=== PATIENT | male | born 1940 | race African-American/Black ===

== ENCOUNTER 2020-02-07 10:08 | Outpatient (REF) | payer MEDICARE, SELFPAY ==
--- NOTE | 2020-02-07 10:21 | MR_ITS ---
EXAMINATION: MR LUMBAR SPINE WITHOUT CONTRAST CLINICAL INFORMATION: Low back pain. COMPARISON: Plain films of the lumbar spine 03/10/2017. TECHNIQUE: MRI of the lumbar spine was obtained using routine sequences without contrast. FINDINGS: VERTEBRAL BODIES AND PARASPINAL STRUCTURES: There is a mild levoscoliosis. There are mild retrolistheses of L1 on L2 and L5 on S1. There is marked narrowing of intervertebral disc height at L1-L2 with degenerative endplate contour changes and edematous signal. Degenerative endplate contour changes with fatty signal demonstrated at L5-S1. There are multilevel Schmorl's nodes. No fractures are demonstrated. Overall, marrow signal is slightly heterogenous. There is a large cyst off the anterior aspect of the left kidney which is incompletely visualized, and was present on prior imaging. There are also smaller cysts in the kidneys bilaterally. The visualized pelvic structures are unremarkable. CONUS MEDULLARIS AND CAUDA EQUINA: Normal, terminating at the level of L1. The lower thoracic spinal cord appears normal. The cauda equina nerve roots and filum terminale appear normal. SPINAL LEVELS: L1-L2: There is mild bilateral facet arthropathy. There is a posterior disc osteophyte complex which is most prominent centrally and toward the left extending into the left neural foramen and there may be impingement on the exiting left L1 nerve root. There is also narrowing of the left subarticular recess with likely impingement on the traversing left L2 nerve root. There is no central stenosis. L2-L3: There is mild bilateral facet arthropathy with facet joint effusions. There is a diffuse disc bulge. The neural foramina are patent. There is mild narrowing of the bilateral subarticular recesses. There is mild central stenosis. L3-L4: There is moderate bilateral facet arthropathy. There is a small cyst off the posterior aspect of the right facet joint. There is a broad-based posterior disc protrusion which is more prominent on the right extending into the right neural foramen. There is mild mass effect on the traversing right L4 nerve root. There is mild central stenosis. L4-L5: There is moderate bilateral facet arthropathy. There is a broad-based posterior disc protrusion extending into the neural foramina bilaterally without definite exiting nerve root impingement. There is mild narrowing of the bilateral subarticular recesses. There is no central stenosis. L5-S1: There is mild to moderate bilateral facet arthropathy. There appear to be sequelae of a left hemilaminectomy. There is a broad-based posterior disc protrusion extending into the neural foramina bilaterally with impingement on the exiting L5 nerve roots. There is impingement on the traversing left S1 nerve root. There is no central stenosis. IMPRESSION: 1. At L5-S1 there is facet arthropathy and is a posterior disc protrusion extending into the neural foramina bilaterally with impingement on the exiting L5 nerve roots, as well as on the traversing left S1 nerve root. There appear to be sequelae of a left hemilaminectomy. 2. At L1-L2 there is a posterior disc osteophyte complex extending into the left neural foramen with impingement on the exiting left L1 nerve root. There is narrowing of the left subarticular recess with likely impingement on the traversing left L2 nerve root. There is no central stenosis. 3. At L3-L4 there is facet arthropathy and there is a posterior disc protrusion. There is narrowing of the right subarticular recess and there is impingement on the traversing right L4 nerve root. There is mild central stenosis.
== END 2020-02-07 10:09 | disposition home or self-care (01) ==
LOC: HO.MRI 10:08
PROVIDERS: PCP Internal Medicine; Visit Provider Internal Medicine
DX: M54.5 Low back pain (principal)
CPT/HCPCS: 72148

== ENCOUNTER → 2020-06-15 14:34 | Outpatient (BNVA) | payer MEDICARE, SELFPAY | PROVIDERS: PCP Internal Medicine; Visit Provider Urology | DX: N52.01 Erectile dysfunction due to arterial insufficiency (principal); N40.0 Benign prostatic hyperplasia without lower urinary tract symptoms | CPT/HCPCS: 99212 ==

== ENCOUNTER → 2020-12-08 14:46 | Outpatient (BNVA) | payer MEDICARE, SELFPAY | PROVIDERS: PCP Internal Medicine; Visit Provider Urology | CPT/HCPCS: Q3014 ==

== ENCOUNTER 2022-12-12 10:22 | Outpatient (REF) | payer MEDICARE, SELFPAY ==
--- NOTE | ~2022-12-12 | XR_ITS ---
EXAMINATION: XR HAND, RIGHT CLINICAL INFORMATION: Pain. COMPARISON: None available. TECHNIQUE: PA, lateral, and oblique views of the right hand. FINDINGS: Bony alignment and mineralization are normal. There is mild osteoarthritic change of the first metacarpophalangeal joint. No fracture or dislocation is seen. There is no abnormal bone erosion. The proximal and distal carpal rows are intact. No focal soft tissue swelling, gas or foreign body is seen. XR/XR hand RT min 3V IMPRESSION: 1. No fracture or dislocation is seen. 2. There is mild osteoarthritic change of the right first metacarpophalangeal joint. 3. No abnormal bone erosion is noted.
--- NOTE | ~2022-12-12 | XR_ITS ---
EXAMINATION: XR LUMBOSACRAL SPINE WITH OBLIQUES CLINICAL INFORMATION: Pain status-post injury. COMPARISON: None available. TECHNIQUE: AP, both oblique, and lateral views of the lumbar spine. Lateral view of the lumbosacral junction. FINDINGS: Vertebral body heights are normal. There is a mild thoracolumbar dextroscoliosis. At T12-L1 and L1-L2, there is marked disc space narrowing, with vacuum disc phenomenon. At L2-L3, there is a 3 mm retrolisthesis. At L5-S1, there is marked disc space narrowing, with vacuum disc phenomenon. No acute fracture or spondylolisthesis is seen. This multi-level lumbar spondylosis. There is facet arthropathy at L4-L5 and L5-S1. There are aortoiliac atherosclerotic calcifications. There are pelvic phleboliths. XR/XR lumbar spine 4V min IMPRESSION: There is multi-level lower thoracic and lumbar degenerative disc disease, spondylosis and facet arthropathy. Degenerative disc disease most pronounced at T12-L1, L1-L2 and L5-S1, where it is severe.
== END 2022-12-12 10:23 | disposition home or self-care (01) ==
LOC: HO.HHCX 10:22
PROVIDERS: Visit Provider Internal Medicine
DX: M79.644 Pain in right finger(s) (principal); M54.50 Low back pain, unspecified
CPT/HCPCS: 72110; 73130

== ENCOUNTER 2022-12-17 08:34 | Outpatient (REF) | payer MEDICARE, SELFPAY ==
--- NOTE | ~2022-12-17 | XR_ITS ---
EXAMINATION: XR BILATERAL HIPS WITH AP PELVIS CLINICAL INFORMATION: Midline low back pain with sciatica COMPARISON: Chest radiograph from 03/07/2017 TECHNIQUE: 2 views of the pelvis and single views of each hip FINDINGS: No acute visible fracture or dislocation. Degenerative changes of the bilateral femoral acetabular joints. Degenerative arthropathy of the lower lumbar spine. Joint spaces and alignment are otherwise maintained. Soft tissues are unremarkable. XR/XR hips NICCI min 3V IMPRESSION: 1. No acute visible fracture or dislocation. 2. Degenerative changes of the bilateral femoral acetabular joints. 3. Degenerative arthropathy of the lower lumbar spine.
== END 2022-12-17 08:35 | disposition home or self-care (01) ==
LOC: HO.HHCX 08:34
PROVIDERS: Visit Provider Internal Medicine
DX: M54.50 Low back pain, unspecified (principal); G89.29 Other chronic pain
CPT/HCPCS: 73522

== ENCOUNTER 2022-12-17 09:03 | Outpatient (REF) | payer MEDICARE, SELFPAY ==
[2022-12-17 12:05] LABS: Alanine Aminotransferase 21 U/L (0-40); Albumin Level 4.2 g/dL (3.5-5.0); Alkaline Phosphatase 111 U/L (39-117); Anion Gap 8 (12-20); Aspartate Amino Transferase 22 U/L (5-37); Bilirubin Direct 0.2 mg/dL (0.0-0.5); Bilirubin Total 0.6 mg/dL (0.0-1.0); Blood Urea Nitrogen 13 mg/dL (9-16); Calcium 9.1 mg/dL (8.4-10.2); Carbon Dioxide 29 mmol/L (22-29); Chloride 106 mmol/L (96-108); Estimated Glomerular Filt Rate > 60; Glucose Random 103 mg/dL (60-115); Potassium 4.4 mmol/L (3.3-5.1); Sodium 139 mmol/L (135-145); Total Protein 7.1 g/dL (6.5-8.0)
[2022-12-17 12:15] LABS: Cholesterol 198 mg/dL (<200); HDL Cholesterol 33 mg/dL (>40); LDL Cholesterol Calculated 134 mg/dL (<100); Triglycerides 158 mg/dL (<150)
[2022-12-17 13:22] LABS: Reflex LDLD? No
== END 2022-12-17 09:04 | disposition home or self-care (01) ==
LOC: HO.HHCL 09:03
PROVIDERS: Visit Provider Internal Medicine
DX: Z00.00 Encounter for general adult medical examination without abnormal findings (principal); I10 Essential (primary) hypertension; E78.2 Mixed hyperlipidemia; Z12.5 Encounter for screening for malignant neoplasm of prostate
CPT/HCPCS: 36415; 80048; 80061; 80076; 84153

== ENCOUNTER 2023-01-08 10:30 | Outpatient (AMB) | payer MEDICARE, SELFPAY ==
--- NOTE | 2023-01-08 10:34 | A.OFFVIS_ITS ---
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 Patient reports reports noticing a lump on the base of the thumb about 4 weeks ago. He states when it causes him a lot of pain and the pain radiates to the dorsal aspect of the wrist. Allergies No Known Allergies [No Known Allergies*] Allergy (Unknown, Verified 01/08/23 10:38) NONE Medication List - Last Reconciled 01/08/23 by Veronica Quick MD amitriptyline 50 mg PO BEDTIME aspirin 81 mg PO BEDTIME atorvastatin mg PO fluoxetine mg PO fluticasone propionate 50 mcg/actuation 1 spray intranasal DAILY furosemide 20 mg PO DAILY ipratropium-albuterol 0.5 mg-3 mg(2.5 mg base)/3 mL mL inhalation lisinopril 5 mg PO BEDTIME loratadine 10 mg PO BEDTIME memantine 5 mg PO BEDTIME metoprolol succinate ER 100 mg PO DAILY ltvlbcuduzxj-drls-iyauz acid 18-400 mg-mcg (Certavite-Antioxidant) 0 tabs PO nitroglycerin 0.4 mg sublingual omeprazole 20 mg PO QAM sildenafil 100 mg PO DAILY PRN sildenafil 100 mg PO DAILY PRN 30 days tizanidine 2 mg PO Q12H PRN tramadol 50 mg PO BID PRN umeclidinium 62.5 mcg/actuation 1 inh inhalation DAILY HPI HPI Comments History of Present Illness Details History of Alzheimers. Here with daughter who provided most of his history. 4 months of right thumb, no falls or acc idents. Points to right base of thumb ventral aspect. Locks. Complains of numbness on thumb, but also on other fingers. Right handed. 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 Treatment done so far: NSAIDs - none no splints or brace yet therapy - none yet PFSH Medical History (Updated 01/08/23 @ 10:57 by Veronica Quick MD) Carpal tunnel syndrome of right wrist Trigger finger of right thumb Osteoarthritis of metacarpophalangeal (MCP) joint Dyspepsia GERD (gastroesophageal reflux disease) Weight loss Renal cyst, acquired Impaired fasting glucose Anxiety Hyperlipidemia Coronary artery disease HTN (hypertension) Lateral epicondylitis Surgical History (Updated 12/08/20 @ 14:49 by NEELAM Lao) History of surgery Social History (Updated 01/08/23 @ 10:37 by Jarvis Portillo) Alcohol intake: current Patient Tobacco Use Status: Current everyday Tobacco user Current occupational status: retired Review of Systems Const All systems reviewed & are unremarkable except as noted in HPI and below Physical Exam Vital Signs: BMI result Body Mass Index 25.6 Constitutional: Patient appears to be in no acute distress, well nourished and well developed. MSK: Inspection reveals appropriate head and neck positioning. No pain with palpation over the neck musculature. Cervical ROM was full. Spurling's sign negative. Bilateral shoulder ROM WNL. No ligamentous laxity or crepitance. No increased effusion. Hawkin's test is negative. Trigger thumb with palpable nodule, right. Tender on right 1st MCP joint, less tenderness on other MCP joints. No intrinsic hand weakness noted. No atrophy noted. Mady test negative. Carpal compression test negative. Tinel sign negative. Strength is 5/5 in all muscle groups tested. No increased tone noted. Neurological: Neurologic examination of the upper and lower extremities was nonfocal with intact sensation, muscle stretch reflexes and without focal motor deficits . Stephens?s negative bilaterally. Gait is non-antalgic without loss of balance. Results Reviewed Results Reviewed: I independently reviewed the results of the following: Right hand x-ray shows loss of space right 1st MCP joint. EXAMINATION: XR HAND, RIGHT CLINICAL INFORMATION: Pain. COMPARISON: None available. TECHNIQUE: PA, lateral, and oblique views of the right hand. FINDINGS: Bony alignment and mineralization are normal. There is mild osteoarthritic change of the first metacarpophalangeal joint. No fracture or dislocation is seen. There is no abnormal bone erosion. The proximal and distal carpal rows are intact. No focal soft tissue swelling, gas or foreign body is seen. XR/XR hand RT min 3V IMPRESSION: 1. No fracture or dislocation is seen. 2. There is mild osteoarthritic change of the right first metacarpophalangeal joint. 3. No abnormal bone erosion is noted. I reviewed records from the following: PCP Assessment & Plan Assessment & Plan (1) Osteoarthritis of metacarpophalangeal (MCP) joint: Code(s): M19.049 - Primary osteoarthritis, unspecified hand (2) Trigger finger of right thumb: Code(s): M65.311 - Trigger thumb, right thumb (3) Carpal tunnel syndrome of right wrist: Code(s): G56.01 - Carpal tunnel syndrome, right upper limb Plan X-ray shows right MCP joint arthritis. Exam shows right trigger thumb and possible Carpal Tunnel Syndrome. We decided to treat this conservatively, nonsurgical. We will put him on a thumb spica splint. Referring him to hand therapy. If not better in few weeks/months, we could consider steroid injection. We will try to avoid need for surgery if possible. Assessment and plan discussed with patient, and patient was agreeable. All questions were answered thoroughly. Follow-up 2 months. Veronica Quick MD, BETTINA Board Certified, [place] [employer] and Rehabilitation (ABPMR) Board Certified, [place] Board [employer] Electro[employer]ostic [employer] (ABEM) Orders: Orders OT Evaluation and Treatment Today G56.01 - Carpal tunnel syndrome, right upper limb, M19.049 - Primary osteoarthritis, unspecified hand, M65.311 - Trigger thumb, right thumb Coding Level of Care Code New Pt Level 4 (89828) Diagnoses Osteoarthritis of metacarpophalangeal (MCP) joint M19.049 Trigger finger of right thumb M65.311 Carpal tunnel syndrome of right wrist G56.01
[2023-01-08 10:37] VITALS: BMI 25.6
== END 2023-01-08 11:45 | disposition home or self-care (01) ==
PROVIDERS: PCP Internal Medicine; Visit Provider Physical Medicine & Rehabilitation
DX: M19.041 Primary osteoarthritis, right hand (principal); M65.311 Trigger thumb, right thumb; G56.01 Carpal tunnel syndrome, right upper limb
CPT/HCPCS: 99204

== ENCOUNTER → 2023-01-08 10:30 | Outpatient (BNVA) | payer MEDICARE, SELFPAY | PROVIDERS: PCP Internal Medicine; Visit Provider Physical Medicine & Rehabilitation ==

== ENCOUNTER 2023-01-23 08:00 | Outpatient (RCR) | payer MEDICARE, SELFPAY | END 2023-01-23 08:54 | disposition home or self-care (01) | LOC: HO.PT 08:00 | PROVIDERS: PCP Internal Medicine; Visit Provider Internal Medicine | DX: M54.50 Low back pain, unspecified (principal); G89.29 Other chronic pain | CPT/HCPCS: 97110; 97162; 97530 ==

== ENCOUNTER 2023-02-20 08:44 | Outpatient (AMB) | payer MEDICARE, SELFPAY ==
--- NOTE | 2023-02-20 08:56 | MHC.OFFVIS ---
Intake Intake Visit Reasons: Elevated PSA Intake Note: NEW Patient presents today to established treatment for Elevated PSA: Meds- Sildenafil Allergies to Antibiotic- No Known Allergies Blood Thinner- Aspirin & Furosemide PSA Results- 4.20 ng/mL, 12/17/2022 Unable to void, PVR- 134 mL Field Service Technician Poultry Required: Yes Field Service Technician Poultry Language: Epidemiologist Name: Sal Medeiros, NEELAM/ERLINDA Rivers Information Interpreted: non-clinical & clinical Accompanied by: Self / Same As Patient Allergies No Known Allergies [No Known Allergies*] Allergy (Unknown, Verified 02/20/23 08:56) NONE HPI HPI Comments History of Present Illness Details Domenic is an 82-year-old male who presents today to the office for a evaluation. 02/20/2023? He is present today for an evaluation of elevated PSA. The patient has seen Dr. Vides on 12/20/2022. He was referred to the urology office during that time. He is a [place] speaking male. 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 The patient has a past medical history significant for coronary artery disease and hypertension. He is a status post cardiac stent. He denies any family history of cancer. He is currently sexual active but does not use Viagra due to the cardiac condition. Patient states that he urinates frequently during the day time and denies getting up at night time to urinate. In review of his medications, he does take Lasix 20 mg during the day which may contribute to the day time urinary frequency. I reviewed the PSA results from 12/17/2022 revealed 4.20 ng/mL. In discussion with the patient given his age his PSA was wnl. Examination: Prostate is smooth, moderately enlarged. 02/20/2023: Evaluation today?Bladder scan PVR: 134 mL. 02/20/2023: Plan: Continue to monitor voiding function and PVR. No further PSA screening recommended given his age and normal prostate exam at this time. [facility] Medical History Carpal tunnel syndrome of right wrist Trigger finger of right thumb Osteoarthritis of metacarpophalangeal (MCP) joint Dyspepsia GERD (gastroesophageal reflux disease) Weight loss Renal cyst, acquired Impaired fasting glucose Anxiety Hyperlipidemia Coronary artery disease HTN (hypertension) Lateral epicondylitis Surgical History History of surgery Social History Alcohol intake: current Patient Tobacco Use Status: Current everyday Tobacco user Current occupational status: retired Review of Systems Const All systems reviewed & are unremarkable except as noted in HPI and below Reports no additional complaints Eyes Reports no additional complaints ENT Reports no additional complaints Card Denies dyspnea Resp Denies cough and Denies dyspnea GI Reports no additional complaints Musc Reports no additional complaints Skin/Breast Denies rash and Denies unusual bruising Neuro Reports no additional complaints Psych Reports no additional complaints Endo Reports no additional complaints Shady/Lymph Reports no additional complaints Aller/Immun Reports no additional complaints Physical Exam Const General: healthy appearing, no acute distress and well developed Orientation/consciousness: patient oriented x3 HEENT Head: Yes normocephalic and Yes atraumatic Eyes Conjunctivae: conjunctivae normal Neck Neck: Yes normal visual inspection Chest Chest palpation & inspection: normal inspection of the chest Resp Effort & Inspection: normal respiratory effort Cardio Rate: regular rate GI Inspection: Yes normal to inspection Palpation (GI): Soft to palpation Other: Prostate Exam: moderately enlarged smooth Penis: normal penis Scrotum: scrotum normal Skin General skin exam: no rashes or lesions noted Neuro General: patient oriented x3 Psych Appearance: grossly normal Affect: normal affect Office Procedures Post Void Residual Post Residual Void Post Void Residual (PVR): 134 [id number] Void Residual by ultrasound Results AMB Urinalysis, Automated UA Leukoctes 0 Tyrell/uL Last Edit by NEELAM Hogan on 02/20/23 14:43 UA Nitrite Negative Last Edit by NEELAM Hogan on 02/20/23 14:43 UA Urobilinogen 0.2 mg/dL Last Edit by NEELAM Hogan on 02/20/23 14:43 UA Protein 0 mg/dL Last Edit by NEELAM Hogan on 02/20/23 14:43 UA pH 7.0 Last Edit by NEELAM Hogan on 02/20/23 14:43 UA Blood 10 Lucas/uL Last Edit by NEELAM Hogan on 02/20/23 14:43 UA Specific [place] 1.010 Last Edit by Sal Waldemar, ZACFatuma on 02/20/23 14:43 UA Ketone Negative Last Edit by NEELAM Hogan on 02/20/23 14:43 UA Bilirubin 0 mg/dL Last Edit by Sukhiparish Waldemar, ZACA on 02/20/23 14:43 UA Glucose 0 mg/dL Last Edit by NEELAM Hogan on 02/20/23 14:43 Results Reviewed Results Reviewed: Laboratory Last Values Urine pH (Auto) 7.0 02/20/23 14:40 Specific [place] (Auto) 1.010 02/20/23 14:40 Urine Protein (Auto) 0 mg/dL 02/20/23 14:40 Glucose (UA)(Auto) 0 mg/dL 02/20/23 14:40 Urine Ketones (Auto) Negative 02/20/23 14:40 Urine Blood (Auto) 10 Lucas/uL 02/20/23 14:40 Urine Nitrite (Auto) Negative 02/20/23 14:40 Urine Bilirubin (Auto) 0 mg/dL 02/20/23 14:40 Urine Urobilinogen (Auto) 0.2 mg/dL 02/20/23 14:40 Leukocyte Esterase (Auto) 0 Tyrell/uL 02/20/23 14:40 Assessment & Plan Assessment & Plan (1) BPH (benign prostatic hyperplasia): Code(s): N40.0 - Benign prostatic hyperplasia without lower urinary tract symptoms (2) Erectile dysfunction due to arterial insufficiency: Code(s): N52.01 - Erectile dysfunction due to arterial insufficiency Plan Continue voiding function and PVR. No further PSA screening and prostate exam recommended given his age at this time. Orders: Orders AMB Post Void Residual by ultrasound Today N39.8 - Other specified disorders of urinary system AMB Urinalysis Automated Today Z13.9 - Encounter for screening, unspecified Patient Instructions: The patient had an opportunity to ask questions regarding treatment plan. All questions were answered. Imaging, Laboratory studies and physical exam results were discussed and reviewed in detail. No major barriers to understanding were identified. The patient expressed understanding and agreement with the above treatment plan. The patient is aware they should contact our office by phone for worsening of their current condition or the appearance of new symptoms. Compliance is encouraged with any medications and followup testing that is ordered. It is a privilege to be allowed the opportunity to participate in the urologic care of your patient. If you have any questions or concerns regarding treatment for the above conditions please do not hesitate to contact me. The office telephone contact is [phone]. This note is constructed in part using voice recognition software. While every effort has been made to ensure accuracy hand umbrella tipper errors may have been included. Yours sincerely, Elke Cabrera MD Coding Level of Care Code New Pt Level 4 (49227) Diagnoses BPH (benign prostatic hyperplasia) N40.0 Erectile dysfunction due to arterial insufficiency N52.01 CPT Codes Post Residual Void - PVR CPT Code: 37970-Yiyw Void Residual by ultrasound ([id number])
== END 2023-02-20 10:02 | disposition home or self-care (01) ==
PROVIDERS: PCP Internal Medicine; Visit Provider Urology
DX: N40.0 Benign prostatic hyperplasia without lower urinary tract symptoms (principal); N52.01 Erectile dysfunction due to arterial insufficiency; Z13.9 Encounter for screening, unspecified
CPT/HCPCS: 99204

== ENCOUNTER → 2023-02-20 08:44 | Outpatient (BNVA) | payer MEDICARE, SELFPAY | PROVIDERS: PCP Internal Medicine; Visit Provider Urology | DX: N40.0 Benign prostatic hyperplasia without lower urinary tract symptoms (principal); N52.01 Erectile dysfunction due to arterial insufficiency | CPT/HCPCS: 51798; 81003; 99202 ==

== ENCOUNTER 2023-03-25 09:22 | Outpatient (REF) | payer MEDICARE, SELFPAY ==
--- NOTE | ~2023-03-25 | XR_ITS ---
EXAMINATION: XR RIGHT HAND AND X-RAY RIGHT WRIST CLINICAL INFORMATION: Fall down with wrist and hand pain COMPARISON: None available. TECHNIQUE: Frontal, lateral and oblique radiographs of the right hand were acquired. Frontal, lateral, navicular and oblique radiographs of the right wrist were acquired. FINDINGS: Right hand: 3 views of the right hand show no fracture, dislocation or bone lesion. Right wrist: There is a small osseous fragment adjacent to the ulnar styloid. This may reflect either a small ulnar styloid fracture or, alternatively, calcification of the triangular fibrocartilage complex. The distal radius and carpal bones are intact. XR/XR wrist RT min 3V IMPRESSION: 1. No acute fracture of the right hand. 2. Tiny chip fracture of the ulnar styloid process versus calcification of the triangular fibrocartilage complex. Suggest correlation with site of pain.
--- NOTE | ~2023-03-25 | XR_ITS ---
EXAMINATION: XR RIGHT HAND AND X-RAY RIGHT WRIST CLINICAL INFORMATION: Fall down with wrist and hand pain COMPARISON: None available. TECHNIQUE: Frontal, lateral and oblique radiographs of the right hand were acquired. Frontal, lateral, navicular and oblique radiographs of the right wrist were acquired. FINDINGS: Right hand: 3 views of the right hand show no fracture, dislocation or bone lesion. Right wrist: There is a small osseous fragment adjacent to the ulnar styloid. This may reflect either a small ulnar styloid fracture or, alternatively, calcification of the triangular fibrocartilage complex. The distal radius and carpal bones are intact. XR/XR hand RT min 3V IMPRESSION: 1. No acute fracture of the right hand. 2. Tiny chip fracture of the ulnar styloid process versus calcification of the triangular fibrocartilage complex. Suggest correlation with site of pain.
== END 2023-03-25 09:23 | disposition home or self-care (01) ==
LOC: HO.HHCX 09:22
PROVIDERS: Visit Provider Nurse Practitioner Family
DX: M79.641 Pain in right hand (principal); M25.531 Pain in right wrist
CPT/HCPCS: 73110; 73130

== ENCOUNTER 2023-05-01 09:37 | Outpatient (AMB) | payer MEDICARE, SELFPAY ==
[2023-05-01 09:56] VITALS: BMI 25.6
--- NOTE | 2023-05-01 09:56 | A.OFFVIS_ITS ---
Intake Vital Signs 05/01/23 09:56 Height 5 ft 2 in Weight 140 lb BMI 25.6 Intake Visit Reasons: FC - rt small ulnar styloid fx, DOI 03/25/23 Intake Note: Domenic is a 82 year old right hand dominant male who presents today for a evaluation of his right wrist fx, DOI 03/25/23. Patient reports he fell landing on his right hand. 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 The patient was referred to the office status post a mechanical fall that occurred around the beginning of 03/23/2023. He states he went to the doctor twice since he fell. The patient reported tripping on tile at his home causing him to fall. He states the wrist is causing him pain. [facility] Medical History Carpal tunnel syndrome of right wrist Trigger finger of right thumb Osteoarthritis of metacarpophalangeal (MCP) joint Dyspepsia GERD (gastroesophageal reflux disease) Weight loss Renal cyst, acquired Impaired fasting glucose Anxiety Hyperlipidemia Coronary artery disease HTN (hypertension) Lateral epicondylitis Surgical History History of surgery Social History Alcohol intake: current Patient Tobacco Use Status: Current everyday Tobacco user Current occupational status: retired Review of Systems Const All systems reviewed & are unremarkable except as noted in HPI and below Physical Exam Vital Signs: BMI result Body Mass Index 25.6 Const General: cooperative and no acute distress Orientation/consciousness: patient oriented x3 Resp Effort & Inspection: normal respiratory effort and able to speak in complete sentences Cardio Peripheral pulses: Peripheral pulses 2+ throughout Skin General skin exam: no rashes or lesions noted Neuro General: patient oriented x3 Extrem Other: Right wrist: Normal to inspection. No ecchymosis, erythema, or edema. Mild tenderness to palpation over the ulnar styloid. Able to perform full finger flexion, extension, abduction, adduction, finger cross, okay sign, and thumbs up without deficit. Able to make a closed fist. Sensation intact. Capillary refill is brisk. Radial pulse intact. Assessment & Plan Assessment & Plan (1) Fracture of right ulnar styloid: Comment: Tiny chip fracture of the ulnar styloid Code(s): S52.611A - Displaced fracture of right ulna styloid process, initial encounter for closed fracture Qualifiers: Encounter type: initial encounter Fracture alignment: nondisplaced Fracture type: closed Qualified Code(s): S52.614A - Nondisplaced fracture of right ulna styloid process, initial encounter for closed fracture Plan Mr. Bains is an 82-year-old right hand dominant male, who is Moroccan speaking (special officer automat was used on the Ipad), presents in the office today, as a new patient, for an evaluation of right hand pain. The patient was referred to the office status post a mechanical fall that occurred around the beginning of 03/23/2023. He states he went to the doctor twice since he fell. The patient reported tripping on tile at his home causing him to fall. He states the wrist is causing him pain. We discussed the bone chip will take 6-8 weeks to heal. I would not recommend a brace at this time due to the amount of time that has pasted since the initial injury and because I would like for you to start to work on gentle ROM to help with stiffness. No heavy lifting with the right upper extremity greater than a coffee cup or cell phone for 4 weeks. Follow up will be in 4 weeks with repeat x-rays, or sooner if needed. X-rays of the right hand, obtained on 03/25/2023, revealed: 1. No acute fracture or dislocation of the right hand. 2. Tiny chip fracture of the ulnar styloid process versus calcification of the triangular fibrocartilage complex. Suggest correlation with site of pain. Patient Instructions: Scribed for Violette Conway PA-C by Nellie Parra medical insurance claims specialist, on 05/01/2023 at 10:00 am, EST. Coding Level of Care Code New Pt Level 4 (01190) Diagnoses Closed nondisplaced fracture of styloid process of right ulna, initial encounter S52.614A Encounter type: initial encounter Fracture alignment: nondisplaced Fracture type: closed
== END 2023-05-01 10:14 | disposition home or self-care (01) ==
PROVIDERS: PCP Internal Medicine; Visit Provider Physician Assistant
DX: S52.614A Nondisplaced fracture of right ulna styloid process, initial encounter for closed fracture (principal)
CPT/HCPCS: 99213

== ENCOUNTER → 2023-05-01 09:37 | Outpatient (BNVA) | payer MEDICARE, SELFPAY | PROVIDERS: PCP Internal Medicine; Visit Provider Physician Assistant | DX: S52.614A Nondisplaced fracture of right ulna styloid process, initial encounter for closed fracture (principal) | CPT/HCPCS: 99212 ==

== ENCOUNTER 2023-05-30 12:39 | Outpatient (REF) | payer OTHER, SELFPAY | END 2023-05-30 12:40 | disposition home or self-care (01) | LOC: HO.HOSX 12:39 | PROVIDERS: Visit Provider Physician Assistant | DX: Z13.89 Encounter for screening for other disorder (principal) ==

== ENCOUNTER 2023-07-18 09:51 | Outpatient (REF) | payer OTHER, SELFPAY ==
--- NOTE | ~2023-07-18 | XR_ITS ---
EXAMINATION: XR WRIST, RIGHT CLINICAL INFORMATION: Pain. COMPARISON: None available. TECHNIQUE: PA, lateral, and oblique views of the right wrist. FINDINGS: Bony alignment and mineralization are normal. There is a slight ulnar positive variance. No fracture or dislocation is seen. The proximal and distal carpal rows are intact. No bone erosion is seen. There is no focal soft tissue swelling, gas or foreign body. XR/XR wrist RT min 3V IMPRESSION: Normal right wrist.
== END 2023-07-18 09:52 | disposition home or self-care (01) ==
LOC: HO.HOSX 09:51
PROVIDERS: Visit Provider Physician Assistant
DX: M25.531 Pain in right wrist (principal); S52.614D Nondisplaced fracture of right ulna styloid process, subsequent encounter for closed fracture with routine healing; W18.30XD Fall on same level, unspecified, subsequent encounter
CPT/HCPCS: 73110; 99212

== ENCOUNTER 2023-07-18 10:51 | Outpatient (AMB) | payer OTHER, SELFPAY ==
[2023-07-18 10:55] VITALS: BMI 25.6
--- NOTE | 2023-07-18 10:55 | MHC.OFFVIS ---
Intake Vital Signs 07/18/23 10:55 Height 5 ft 2 in Weight 140 lb BMI 25.6 Intake Visit Reasons: OV- rt small ulnar styloid fx, DOI 03/25/23 Intake Note: Domenic is a 82 year old right hand dominant male who presents today for a follow up of his right ulnar styloid fx, DOI 03/25/23. Patient reports he is feeling a bit better, however have some discomfort with certain movements. He states that his pain radiates up to his elbow. Allergies No Known Allergies [No Known Allergies*] Allergy (Unknown, Verified 07/18/23 10:55) NONE HPI OV- rt small ulnar styloid fx, DOI 03/25/23 HPI Details 82-year-old right hand dominant male, who is Slovenian speaking, presents in the office today for a follow up of a right ulnar styloid fracture, which occurred around the beginning of 03/2023 status post a mechanical fall. I last saw the patient in the office on 05/01/2023. At that time it was not recommend to brace the wrist due to the date the injury occurred. It was recommended for the patient to work on gentle ROM with no heavy lifting with the right upper extremity. While in the office today he reports he feeling a bit better, but he does have some discomfort with certain movements. He reports his pain radiates up to his elbow. [facility] Medical History Carpal tunnel syndrome of right wrist Trigger finger of right thumb Osteoarthritis of metacarpophalangeal (MCP) joint Dyspepsia GERD (gastroesophageal reflux disease) Weight loss Renal cyst, acquired Impaired fasting glucose Anxiety Hyperlipidemia Coronary artery disease HTN (hypertension) Lateral epicondylitis Surgical History History of surgery Social History Alcohol intake: current Patient Tobacco Use Status: Current everyday Tobacco user Current occupational status: retired Review of Systems Const All systems reviewed & are unremarkable except as noted in HPI and below Physical Exam Vital Signs: BMI result Body Mass Index 25.6 Const General: cooperative, healthy appearing and no acute distress Orientation/consciousness: patient oriented x3 Resp Effort & Inspection: normal respiratory effort and able to speak in complete sentences Cardio Rate: regular rate Peripheral pulses: Peripheral pulses 2+ throughout GI Palpation (GI): Soft to palpation Skin General skin exam: no rashes or lesions noted Lesions: no lesions Rashes: no rashes Neuro General: patient oriented x3 Extrem Other: Right wrist: Normal to inspection. No ecchymosis, erythema, or edema. No tenderness to palpation over the ulnar styloid. Able to perform full finger flexion, extension, abduction, adduction, finger cross, okay sign, and thumbs up without deficit. Able to make a closed fist. Sensation intact. Capillary refill is brisk. Radial pulse intact. Assessment & Plan Assessment & Plan (1) Fracture of right ulnar styloid: Comment: Tiny chip fracture of the ulnar styloid Code(s): S52.611A - Displaced fracture of right ulna styloid process, initial encounter for closed fracture Qualifiers: Encounter type: initial encounter Fracture alignment: nondisplaced Fracture type: closed Qualified Code(s): S52.614A - Nondisplaced fracture of right ulna styloid process, initial encounter for closed fracture Plan Mr. Herson Wray is an 82-year-old right hand dominant male, who is Slovenian speaking, presents in the office today for a follow up of a right ulnar styloid fracture, which occurred around the beginning of 03/2023 status post a mechanical fall. I last saw the patient in the office on 05/01/2023. At that time it was not recommend to brace the wrist due to the date the injury occurred. It was recommended for the patient to work on gentle ROM with no heavy lifting with the right upper extremity. While in the office today he reports he feeling a bit better, but he does have some discomfort with certain movements. He reports his pain radiates up to his elbow. Educated that you are about to take Tylenol or Ibuprofen as needed for pain. Follow up will be PRN, or sooner if needed. X-rays of the right wrist which were obtained while in the office today and were reviewed by me, Violette Conway PA-C, revealed healed right ulnar styloid fracture. Orders: Orders XR wrist RT min 3V Today M25.539 - Pain in unspecified wrist Patient Instructions: Scribed by Nellie Parra medical malpractice paralegal, for Violette Conway PA-C on 07/18/2023 at 10:53 am, EST. Coding Level of Care Code Est Pt Level 3 (86693) Diagnoses Closed nondisplaced fracture of styloid process of right ulna, initial encounter S52.614A Encounter type: initial encounter Fracture alignment: nondisplaced Fracture type: closed
== END 2023-07-18 11:14 | disposition home or self-care (01) ==
PROVIDERS: PCP Internal Medicine; Visit Provider Physician Assistant
DX: S52.614D Nondisplaced fracture of right ulna styloid process, subsequent encounter for closed fracture with routine healing (principal)
CPT/HCPCS: 99213

== ENCOUNTER 2023-11-13 09:58 | Outpatient (REF) | payer OTHER, SELFPAY ==
--- NOTE | ~2023-11-13 | XR_ITS ---
EXAMINATION: XR RIBS, RIGHT, WITH PA CHEST CLINICAL INFORMATION: History of fall. Mid back pain. COMPARISON: CXR from 02/16/2013. Chest CT from 01/02/2015. TECHNIQUE: 3 views of the right ribs. Also, PA view of chest. FINDINGS: The left hemidiaphragm is chronically mildly elevated. There appears to be subtle opacity of likely atelectasis at the left lung base just above the elevated left hemidiaphragm. No overt airspace disease. No pleural effusion or pneumothorax. Cardiac silhouette has normal size and contour. The chronic smoothly marginated soft tissue prominence in the lower mediastinum corresponds to either a lipoma or chronically herniated fat around the region of esophagogastric junction. Old healed fractures of left posterior ninth and 10th ribs. Also, old healed fractures of right anterolateral fourth and fifth ribs. Multilevel discovertebral joint changes with osteophyte formation of the thoracolumbar spine. XR/XR ribs RT min 3V w CXR1V IMPRESSION: * No evidence of acute rib injury. * Old healed bilateral rib fractures.
== END 2023-11-13 09:59 | disposition home or self-care (01) ==
LOC: HO.HHCX 09:58
PROVIDERS: Visit Provider Family Medicine
DX: M54.9 Dorsalgia, unspecified (principal)
CPT/HCPCS: 71101

== ENCOUNTER 2023-12-25 08:00 | Outpatient (REF) | payer OTHER, SELFPAY ==
[2023-12-25 11:51] LABS: Anion Gap 11 (12-20); Blood Urea Nitrogen 11 mg/dL (9-16); Calcium 9.7 mg/dL (8.4-10.2); Carbon Dioxide 28 mmol/L (22-29); Chloride 106 mmol/L (96-108); Cholesterol 146 mg/dL (<200); Estimated Glomerular Filt Rate > 60; Glucose Random 108 mg/dL (60-115); HDL Cholesterol 30 mg/dL (>40); LDL Cholesterol Calculated 75 mg/dL (<100); Potassium 4.2 mmol/L (3.3-5.1); Sodium 141 mmol/L (135-145); Triglycerides 208 mg/dL (<150)
== END 2023-12-25 08:01 | disposition home or self-care (01) ==
LOC: HO.HHCL 08:00
PROVIDERS: Visit Provider Internal Medicine
DX: I10 Essential (primary) hypertension (principal); E78.2 Mixed hyperlipidemia
CPT/HCPCS: 36415; 80048; 80061

== ENCOUNTER 2024-08-10 08:35 | Outpatient (AMB) | payer OTHER, SELFPAY ==
--- NOTE | 2024-08-10 08:39 | A.OFFVIS_ITS ---
Intake Visit Reasons: 1y follow up/PVR Intake Note: Patient presents to office today for a 1 year follow up/PVR Urology Meds: none Allergies to Antibiotic- No Known Allergies Blood Thinner- Aspirin & Furosemide PVR:61ml Finishing Trimmer Required: Yes Finishing Trimmer Language: Corporate Responsibility Officer Name: Ava [id number] Information Interpreted: non-clinical & clinical Accompanied by: Self / Same As Patient Allergies No Known Allergies (No Known Allergies*) Allergy (Unknown, Verified 08/10/24 08:46) NONE HPI Comments Details: 08/10/24-- History of Present Illness The patient is an 84-year-old male presenting for a follow-up on Benign Prostatic Hyperplasia (BPH). His management involves periodic evaluations, during which he has reported stability in urinary function, experiencing no dysuria, hesitancy, or nocturia beyond his baseline. He has corrected inadequate hydration habits, which may influence urine concentration, by potentially increasing fluid intake, particularly water, while moderating coffee consumption, to aid appropriate urinary health management. A bladder scan obtained during this encounter reported a post-void residual volume of 61 mL, confirming that the patient's condition remains under control. Results - Bladder Scan: Post-void residual volume was 61 mL (within normal limits) Discussion Notes I discussed with the patient the ongoing management of his Benign Prostatic Hyperplasia (BPH). There was a review of his current urinary health status, which remains stable, and he reported no new urinary complaints. We discussed the benefits of adequate hydration, specifically increasing water intake, and minimizing caffeine consumption to maintain optimal urinary tract function. Additionally, we talked about performing a diagnostic ultrasound of the kidneys and bladder to ensure no progression of his underlying condition and to continue comprehensive monitoring of his health status. 02/20/2023Sylvia is an 82-year-old male who presents today to the office for a evaluation. He is present today for an evaluation of elevated PSA. The patient has seen Dr. Vides on 12/20/2022. He was referred to the urology office during that time. He is a Lithuanian speaking male. Certified parts product analyst was present during the visit. The patient has a past medical history significant for coronary artery disease and hypertension. He is a status post cardiac stent. He denies any family history of cancer. He is currently sexual active but does not use Viagra due to the cardiac condition. Patient states that he urinates frequently during the day time and denies getting up at night time to urinate. In review of his medications, he does take Lasix 20 mg during the day which may contribute to the day time urinary frequency. I reviewed the PSA results from 12/17/2022 revealed 4.20 ng/mL. In discussion with the patient given his age his PSA was wnl. Examination: Prostate is smooth, moderately enlarged. 02/20/2023: Evaluation today?Bladder scan PVR: 134 mL. [facility] Medical History Carpal tunnel syndrome of right wrist Trigger finger of right thumb Osteoarthritis of metacarpophalangeal (MCP) joint Dyspepsia GERD (gastroesophageal reflux disease) Weight loss Renal cyst, acquired Impaired fasting glucose Anxiety Hyperlipidemia Coronary artery disease HTN (hypertension) Lateral epicondylitis Surgical History History of surgery Social History Alcohol intake: current Patient Tobacco Use Status: Current everyday Tobacco user Current occupational status: retired Review of Systems Const All systems reviewed & are unremarkable except as noted in HPI and below Reports no additional complaints Eyes Reports no additional complaints ENT Reports no additional complaints Card Reports no additional complaints Resp Reports no additional complaints GI Reports no additional complaints Reports as per HPI Musc Reports no additional complaints Skin/Breast Reports system reviewed and no additional complaints, except as documented Neuro Reports no additional complaints Psych Reports no additional complaints Endo Reports no additional complaints Shady/Lymph Reports no additional complaints Aller/Immun Reports no additional complaints Assessment & Plan Assessment & Plan (1) BPH (benign prostatic hyperplasia): Code(s): N40.0 - Benign prostatic hyperplasia without lower urinary tract symptoms Category: Medical Plan Plan I have scheduled a diagnostic ultrasound of the kidneys and bladder - Increase daily water intake to at least 24 ounces - Limit coffee consumption to help reduce urinary frequency - Expect a call from radiology to schedule the kidney and bladder ultrasound - Follow-up appointment scheduled for three months - Maintain current fluid intake habits to improve general hydration - Report any changes in urinary symptoms promptly Orders: Orders US retroperitoneal comp 4 Weeks N40.0 - Benign prostatic hyperplasia without lower urinary tract symptoms Patient Instructions: The patient had an opportunity to ask questions regarding treatment plan. The patient expressed understanding and agreement with the above treatment plan. The patient is aware they should contact our office by phone for worsening of their current condition or the appearance of new symptoms. Compliance is encouraged with any medications and followup testing that is ordered. It is a privilege to be allowed the opportunity to participate in the urologic care of your patient. If you have any questions or concerns regarding treatment for the above conditions please do not hesitate to contact me. The office telephone contact is [phone]. This note is constructed in part using voice recognition software. While every effort has been made to ensure accuracy software systems architect errors may have been included. Yours sincerely, Elke Cabrera MD Scribe Plan - Not visible on output: Patient was informed and verbally consented to the use of an ambient scribe for clinic note documentation during this visit. Coding Level of Care Code Est Pt Level 3 (87691) Complex EM visit Add On G2211 Diagnoses BPH (benign prostatic hyperplasia) N40.0
--- OUTSIDE RECORDS SUMMARY | 2024-08-10 08:56 | XMS_ITS | Encounter Summary ---
Author Organization [facility] Address [address] [place] [address] Care Team Providers Care Psych Coordinator Name Role Phone Rajendra Hogue MD Primary Care Provide r Reason for Visit * Reason Onset Date Comments Med Refill 10/30/2023 Encounter Details Date Type Department Care Team ([facility] st Contact Info) Description 10/30/2023 Telephone [facility] MEDIC[facility] [address], [place] [phone] Rajendra Hogue MD [address], [place] [phone] Med Refill Social History Tobacco Use Types Packs/Day Years Used Date Smoking Tobacco: Every Day Cigarettes Passive Smoke Exposure: Current Smokeless Tobacco: Never Housing Stability Answer Date Recorded What is your housing situation today? I have georgiana pantoja 02/03/[address] you li ve. Do you have problems with any of the following? None of the above 02/03/2023 Food Insecurity Answer Date Recorded Within the past 12 months, y ou worried that your food would run out before you got money to buy more: Never True 02/03/2023 Within the past 12 months,th e food you bought just didn't last and you didn't have enough money to get more: Never True Transportation Answer Date Recorded In the past 12 months, has l ack of transportation kept you from medical appts, meetings, work or from getting things needed for daily living? No 02/03/2023 Utilities Answer Date Recorded In the past 12 months, has t he electric, gas, oil or water company threatened to shut off services in your home? No 02/03/2023 Depression Answer Date Recorded Patient Health Questionnaire-2 Score 0 12/12/2022 Sex and Gender Information Value Date Recorded Sex Assigned at Male 02/18/2022 10:18 AM EDT Legal Sex Male 10:18 AM EDT Gender Identity Male 02/18/2022 10:18 AM EDT Sexual Orientation Straight 02/18/2022 10 :18 AM EDT documented as of this encounter Miscellaneous Notes * Telephone Encounter - Reypatricia Portillo - 10/30/2023 10:34 AM EDT TC from pt requesting medication refill. Medications needing refill: traMADol (Ultram) 50 MG tablet To be sent to: [facility] documented in this encounter Plan of Treatment Upcoming Encounters Date Type Department Care Team (Late st Contact Info) Description 08/24/2024 10:15 AM EDT Office Visit [facility] [address] [place] [address] Rajendra Hogue MD [address] [place] [address] documented as of this encounter Visit Diagnoses Not on filedocumented in this encounter Care Teams Psych Coordinator Relationship Specialty Start Date End Date Rajendra Hogue MD [address] [place] [address] PCP - General Internal Medicine 03/03/14 documented as of this encounter
--- OUTSIDE RECORDS SUMMARY | 2024-08-10 08:56 | XMS_ITS | Encounter Summary ---
Author Organization [facility] Address [address] [place] [address] Care Team Providers Care Obgyn Specialist Name Role Phone Rajendra Hogue MD Primary Care Provide r Reason for Visit * Reason Comments Med Refill Encounter Details Date Type Department Care Team (Late st Contact Info) Description 04/01/2024 Refill [facility] [address] [place] [address] Rajendra Hogue MD [address] [place] [address] 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 sciatica Social History Tobacco Use Types Packs/Day Years Used Date Smoking Tobacco: Every Day Cigarettes Passive Smoke Exposure: Current Smokeless Tobacco: Never Depression Answer Date Recorded Patient Health Questionnaire-9 Score 1 12/18/2023 Patient Health Questionnaire-9 Score 1 12/18/2023 Last PHQ-9: Questionnaire Data Not on file 0 12/18/2023 Housing Stability Answer Date Recorded What is your housing situation today? I have georgiana sing 12/18/[address] you li ve. Do you have problems with any of the following? None of the above 12/18/2023 Food Insecurity Answer Date Recorded Within the past 12 months, y ou worried that your food would run out before you got money to buy more: Never True 12/18/2023 Within the past 12 months,th e food you bought just didn't last and you didn't have enough money to get more: Never True Transportation Answer Date Recorded In the past 12 months, has l ack of transportation kept you from medical appts, meetings, work or from getting things needed for daily living? No 12/18/2023 Utilities Answer Date Recorded In the past 12 months, has t he electric, gas, oil or water company threatened to shut off services in your home? No 12/18/2023 Depression Answer Date Recorded Patient Health Questionnaire-2 Score 1 12/18/2023 Internet Access Answer Date Recorded Internet Access Q1 Yes 12/20/2023 Internet Access Q2 Not on file 12/20/2023 Sex and Gender Information Value Date Recorded Sex Assigned at Male 02/18/2022 10:18 AM EDT Legal Sex Male 10:18 AM EDT Gender Identity Male 02/18/2022 10:18 AM EDT Sexual Orientation Straight 02/18/2022 10 :18 AM EDT documented as of this encounter Plan of Treatment Upcoming Encounters Date Type Department Care Team (Late st Contact Info) Description 08/24/2024 10:15 AM EDT Office Visit [facility] MEDICINE [address] [place] [address] Rajendra Hogue MD [address] [place] [address] documented as of this encounter Visit Diagnoses Diagnosis 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 sciatica documented in this encounter Additional Health Concerns Assessment Noted Time PHQ-9 Depression Total Score: 1 12/18/19 24 9:36 AM EDT documented as of this encounter Care Teams Obgyn Specialist Relationship Specialty Start Date End Date Rajendra Hogue MD [address] [place] [id number] PCP - General Internal Medicine 03/03/14 documented as of this encounter
--- OUTSIDE RECORDS SUMMARY | 2024-08-10 08:56 | XMS_ITS | Encounter Summary ---
Author Organization [facility] Address [address] [facility] [address] [place] [address] Care Team Providers Care Motor Vehicle Emissions Inspector Name Role Phone Rajendra Hogue MD Primary Care Provide r Reason for Visit * Reason Comments Med Refill Encounter Details Date Type Department Care Team (Late st Contact Info) Description 05/01/2022 Refill [facility] [address] [place], [place] [phone] Rajendra Hogue MD [address] [place] [address] [id number] 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 sciatica Social History Tobacco Use Types Packs/Day Years Used Date Smoking Tobacco: Never Assessed Sex and Gender Information Value Date Recorded Sex Assigned at Male 02/18/2022 10:18 AM EDT Legal Sex Male 10:18 AM EDT Gender Identity Male 02/18/2022 10:18 AM EDT Sexual Orientation Straight 02/18/2022 10 :18 AM EDT documented as of this encounter Plan of Treatment Upcoming Encounters Date Type Department Care Team (Late st Contact Info) Description 08/24/2024 10:15 AM EDT Office Visit [facility] [address] [place], [place] [phone] Rajendra Hogue MD [address] [place], [place] [phone] documented as of this encounter Visit Diagnoses Diagnosis 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 sciatica documented in this encounter Care Teams Motor Vehicle Emissions Inspector Relationship Specialty Start Date End Date Rajendra Hogue MD [address] [place] [phone] PCP - General Internal Medicine 03/03/14 documented as of this encounter
--- OUTSIDE RECORDS SUMMARY | 2024-08-10 08:56 | XMS_ITS | Encounter Summary ---
Author Organization [facility] Address [address] [facility] 7[address] [place] [address] Care Team Providers Care Costumed Character Entertainer Name Role Phone Rajendra Hogue MD Primary Care Provide r Reason for Visit * Reason Comments Med Refill Encounter Details Date Type Department Care Team (Late st Contact Info) Description 08/27/2023 Refill [facility] [address] [place] [phone] Rajendra Hogue MD [address] [place], [place] [phone] 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 sciatica [...] Description 08/24/2024 10:15 AM EDT Office Visit [facility] [address] [place], [place] [phone] Rajendra Hogue MD [address] [place] [id number] documented as of this encounter Visit Diagnoses Diagnosis 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 sciatica documented in this encounter Care Teams Costumed Character Entertainer Relationship Specialty Start Date End Date Rajendra Hogue MD [address] [place] [address] [phone] PCP - General Internal Medicine 03/03/14 documented as of this encounter
--- OUTSIDE RECORDS SUMMARY | 2024-08-10 08:56 | XMS_ITS | Clinical Summary ---
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 08/08/19 22 Active furosemide (Lasix) 20 MG tablet Take 20 mg by mouth in the morning. 09/25/19 13 Active atorvastatin (Lipitor) 40 MG tablet Take 40 mg by mouth at bed time. 01/24/20 20 Active metoprolol succinate XL (Toprol-XL) 100 MG 24 hr tablet Take 1 tablet by mouth in the morning. 04/26/19 15 Active albuterol 108 (90 Base) MCG/ACT inhaler Inhale 2 puffs every 4 (four) hours if needed. 05/03/19 15 Active Diclofenac Sodium 1 % gel Apply 2 g topically if needed in the morning, at noon, in the evening, and at bedtime (pain). 350 g 1 03/25/20 23 Active fluticasone (Flonase) 50 MCG/ACT nasal spray Administer 1 spray into each nostril in the morning. 16 g 07/04/19 24 Active traMADol (Ultram) 50 MG tabletIndication s: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 sciatica TAKE 1 TABLET BY MOUTH EVERY TWELVE HOURS NEEDED FOR SEVERE PAIN 56 tablet 11/28/19 24 Active omeprazole (PriLOSEC) [address] capsule TAKE 1 CAPSULE BY MOUTH EVERY MORNING BEFORE MEALS 90 capsule 1 03/03/20 24 Active Multiple Vitamins-Mineral s (CertaVite/Antio xidants) tabletIndication s: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, psychotic disturbance, mood disturbance, or anxiety, unspecified timing of dementia onset (CMS/HCC) TAKE 1 TABLET BY MOUTH EVERY MORNING 90 tablet 3 04/01/20 24 Active loratadine (Claritin) 10 MG tabletIndication s:Seasonal allergies TAKE 1 TABLET BY MOUTH EVERY MORNING 90 tablet 1 05/20/19 25 Active FLUoxetine (PROzac) 40 MG capsuleIndicatio ns:Depressive disorder TAKE 1 CAPSULE BY MOUTH EVERY MORNING 90 capsule 1 06/08/19 25 Active memantine (Namenda) 5 MG tabletIndication s: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, psychotic disturbance, mood disturbance, or anxiety, unspecified timing of dementia onset (CMS/HCC) TAKE 1 TABLET BY MOUTH EVERY MORNING 90 tablet 1 06/08/19 25 Active aspirin (Aspirin Low Dose) 81 MG EC tabletIndication s:Atherosclerosi s of [place] coronary artery of [place] heart without angina pectoris TAKE 1 TABLET BY MOUTH AT BEDTIME 90 tablet 1 06/08/19 25 Active ipratropium-albu terol (Duo-Neb) 0.5-2.5 mg/3 mL nebulizer solution INHALE 1 AMPULE USING A NEBULIZER FOUR TIMES DAILY 360 mL 5 06/25/19 25 Active Incruse Ellipta 62.5 MCG/ACT aerosol powderIndication s:Pulmonary emphysema, unspecified emphysema type (CMS/HCC) INHALE 1 PUFF BY MOUTH EVERY DAY AT THE SAME TIME RINSE MOUTH AFTER USING 30 each 3 07/14/19 25 Active traMADol (Ultram) 50 MG tabletIndication s: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 sciatica TAKE 1 TABLET BY MOUTH EVERY TWELVE HOURS NEEDED FOR SEVERE PAIN 56 tablet 07/14/19 25 Active amitriptyline (Elavil) 50 MG tabletIndication s:Depressive disorder TAKE 1 TABLET BY MOUTH AT BEDTIME 90 tablet 07/16/19 25 Active lisinopril 30 MG tabletIndication s:Essential hypertension TAKE 1 TABLET BY MOUTH EVERY MORNING 30 tablet 3 08/07/19 25 Active amitriptyline (Elavil) 50 MG tabletIndication s:Depressive disorder TAKE 1 TABLET BY MOUTH AT BEDTIME 90 tablet 04/01/20 24 025 Discontinued lisinopril 30 MG tabletIndication s:Essential hypertension TAKE 1 TABLET BY MOUTH EVERY MORNING 30 tablet 3 04/08/20 24 025 Discontinued Incruse Ellipta 62.5 MCG/ACT aerosol powderIndication s:Pulmonary emphysema, unspecified emphysema type (CMS/HCC) INHALE 1 PUFF BY MOUTH EVERY DAY AT THE SAME TIME RINSE MOUTH AFTER USING 30 each 1 05/20/19 25 025 Discontinued traMADol (Ultram) 50 MG tabletIndication s: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 sciatica TAKE 1 TABLET BY MOUTH EVERY TWELVE HOURS NEEDED FOR SEVERE PAIN 56 tablet 06/04/19 25 025 Discontinued Active Problems Problem Noted Date Diagnosed Date Fall 04/13/2024 Assessment & Plan (04/13/2024 9:42 AM EST): Pt fell at home 3 days ago, tripped and hit his face. Denies any loss of consciousness, did not his his head On exam patient has some scratches on his nose. Nose is non tender, no redness, no warmth, musculoskeletal exam within normal limits aside from LS spine muscle spasm Plan: Fall precautions discussed, pt has a cane Will send a triple antibiotic topical to prevent infection on his minor face scratches BMI 27.0-27.9,adult 08/12/2023 Assessment & Plan (08/12/2023 1:57 PM EDT): Patient has been counseled and educated about diet and exercise. Personal goal of weight loss discussed Elevated PSA 04/15/2023 Assessment & Plan (12/18/2023 9:38 AM EDT): Mild elevation Seen by Urology 02/20/2023 they recommended no further testing and observation given his age Assessment & Plan (04/15/2023 9:29 AM EST): Mild elevation Seen by Urology 02/20/2023 they recommended no further testing and observation given his age Closed nondisplaced fracture of styloid process of right ulna with routine healing 04/15/2023 Assessment & Plan (12/18/2023 9:39 AM EDT): Seen 03/26/2023 s/p fall By Belén chacon Wrapped with morena and stabilizing splint. Pt was stat-referred to ortho according to her note for Tiny chip fracture of the ulnar styloid process versus calcification of the triangular fibrocartilage complex. Suggest correlation with site of pain. Pt last seen by ortho 06/2023 Assessment & Plan (08/12/2023 2:05 PM EDT): Seen 03/26/2023 s/p fall By Belén chacon Wrapped with morena and stabilizing splint. Pt was stat-referred to ortho according to her note for Tiny chip fracture of the ulnar styloid process versus calcification of the triangular fibrocartilage complex. Suggest correlation with site of pain. Pt last seen by ortho 06/2023 Assessment & Plan (04/17/2023 10:29 AM EST): Seen 03/26/2023 s/p fall By Belén chacon Wrapped with morena and stabilizing splint. Pt was stat-referred to ortho according to her note for Tiny chip fracture of the ulnar styloid process versus calcification of the triangular fibrocartilage complex. Suggest correlation with site of pain. Pt was not seen, we sent a reading of the x-ray to the ortho office so they can review it and decide if further treatment/ follow up is necessary. Ortho office is to contact patient with appointment Preventative health care 12/12/2022 Assessment & Plan (12/18/2023 9:42 AM EDT): SYBIL: Declined, PSA 12/17/2022 4.2 referred to urology Colonoscopy: Normal : 02/21/2017 Vaccines: Zostavax : 12/29/2014 Assessment & Plan (12/12/2022 9:38 AM EDT): SYBIL: Declined, PSA 01/01/2017 Normal Colonoscopy: Normal : 02/21/2017 Vaccines: Zostavax : 12/29/2014 Cigarette smoker 02/19/2016 Essential hypertension 03/20/2015 Assessment & Plan (04/13/2024 9:39 AM EST): Pt here for a f/u in regards to his HTN BP controlled He is on a regimen of: Lisinopril 30 mg po daily, Toprol XL 100 mg po daily and Lasix 20 mg po daily. Most recent electrolytes, Bun and Creatinine done on: Lab Results Component Value Date NA 141 12/25/2023 NA 139 12/17/2022 K 4.2 12/25/2023 K 4.4 12/17/2022 CL 106 12/25/2023 CL 106 12/17/2022 BUN 11 12/25/2023 BUN 13 12/17/2022 CREATININE 1.01 12/25/2023 CREATININE 0.78 12/17/2022 were within normal limits. Plan:continue current regimen patient advised to adhere to a low sodium diet, encouraged about medication compliance f/u 4 months Assessment & Plan (12/18/2023 9:48 AM EDT): Pt here for a f/u in regards to his HTN BP controlled He is on a regimen of: Lisinopril 30 mg po daily, Toprol XL 100 mg po daily and Lasix 20 mg po daily. Most recent electrolytes, Bun and Creatinine done on: 12/17/2022 were within normal limits. Will repeat Plan: No changes patient advised to adhere to a low sodium diet, encouraged about medication compliance f/u 4 months Assessment & Plan (08/12/2023 2:09 PM EDT): Pt here for a f/u in regards to his HTN BP still elevated He is on a regimen of: Lisinopril 20 mg po daily, Toprol XL 100 mg po daily and Lasix 20 mg po daily. Most recent electrolytes, Bun and Creatinine done on: 12/17/2022 were within normal limits. Plan: Increase Lisinopril 30 mg po daily patient advised to adhere to a low sodium diet, encouraged about medication compliance f/u 4 months Assessment & Plan (04/15/2023 9:43 AM EST): Pt here for a f/u in regards to his HTN Blood pressure today elevated He is on a regimen of: Lisinopril 10 mg po daily, Toprol XL 100 mg po daily and Lasix 20 mg po daily. Most recent electrolytes, Bun and Creatinine done on: 12/17/2022 were within normal limits. Plan: Increase Lisinopril to 20 m g po daily patient advised to adhere to a low sodium diet, encouraged about medication compliance f/u 4 months Assessment & Plan (12/12/2022 9:41 AM EDT): Pt here for a f/u in regards to his HTN Blood pressure today elevated He is on a regimen of: Lisinopril 5 mg po daily, Toprol XL 100 mg po daily and Lasix 20 mg po daily. Most recent electrolytes, Bun and Creatinine done on: 10/29/2021 were within normal limits. Will repeat Plan: Increase Lisinopril tp 10 mg po dailu patient advised to adhere to a low sodium diet, encouraged about medication compliance f/u 4 months Assessment & Plan (03/28/2022 2:19 PM EST): Pt here for a f/u in regards to his HTN Blood pressure remains controlled He is on a regimen of: Lisinopril 5 mg po daily, Toprol XL 100 mg po daily and Lasix 20 mg po daily. Given adequate blood pressure control will continue with current medical regimen. Most recent electrolytes, Bun and Creatinine done on: 10/29/2021 were within normal limits. patient advised to adhere to a low sodium diet, encouraged about medication compliance f/u 4 months Chronic obstructive lung disease 02/08/2014 Assessment & Plan (04/13/2024 9:26 AM EST): Here for a follow up, doing well PFTs done 09/13/11 showed moderate-severe COPD with no reversibility with bronchodilators. Use Incruse and Combivent as needed. Chest CT 01/02/2015 Negative for Lung malignancy He is on Incruse 1 puff daily Assessment & Plan (12/18/2023 9:37 AM EDT): Doing well PFTs done 09/13/11 showed moderate-severe COPD with no reversibility with bronchodilators. Use Incruse and Combivent as needed. Chest CT 01/02/2015 Negative for Lung malignancy He is on Incruse 1 puff daily Assessment & Plan (08/12/2023 1:44 PM EDT): Doing well PFTs done 09/13/11 showed moderate-severe COPD with no reversibility with bronchodilators. He should continue the Incruse and Combivent as needed. Chest CT 01/02/2015 Negative for Lung malignancy He is on Incruse 1 puff daily Assessment & Plan (12/12/2022 9:45 AM EDT): Doing well PFTs done 09/13/11 showed moderate-severe COPD with no reversibility with bronchodilators. He should continue the Incruse and Combivent as needed. Chest CT 01/02/2015 Negative for Lung malignancy He is on Incruse 1 puff daily Assessment & Plan (03/28/2022 2:26 PM EST): Doing well PFTs done 09/13/11 showed moderate-severe COPD with no reversibility with bronchodilators. He should continue the Spiriva and Combivent as needed. Chest CT 01/02/2015 Negative for Lung malignancy His Insurance did not want to pay for Spiriva anymore, switched to alternative Incruse 1 puff daily next refill 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 sciatica 1 Assessment & Plan (04/13/2024 9:40 AM EST): Pt with chronic low back pain He has a History of L4-L5 disc surgery in 1986 in [place]. Acetaminophen had been ineffective as had ibuprofen. He was referred to PT , Tramadol helped with the pain. On Lidoderm patches. MRI of LS spine 02/07/2020 that showed: At L5-S1 there is facet arthropathy and is a posterior disc protrusion extending into the neural foramina bilaterally with impingement on the exiting L5 nerve roots, as well as on the traversing left S1 nerve root. There appear to be sequelae of a left hemilaminectomy. At L1-L2 there is a posterior disc osteophyte complex extending into the left neural foramen with impingement on the exiting left L1 nerve root. There is narrowing of the left subarticular recess with likely impingement on the traversing left L2 nerve root. There is no central stenosis. At L3-L4 there is facet arthropathy and there is a posterior disc protrusion. There is narrowing of the right subarticular recess and there is impingement on the traversing right L4 nerve root. There is mild central stenosis. Evaluated by [facility] last note 12/11/2021 they recommended PT and f/u for trial of epidural injections pt had good results. Plain films of his LS spine showed: There is multi-level lower thoracic and lumbar degenerative disc disease, spondylosis and facet arthropathy. Degenerative disc disease most pronounced at T12-L1, L1-L2 and L5-S1, where it is severe. X-Ray and Hips and pelvis showed: No acute visible fracture or dislocation. 2. Degenerative changes of the bilateral femoral acetabular joints. 3. Degenerative arthropathy of the lower lumbar spine. Pt received PT He has been taking Tramadol 1 to 2 tabs po q 12 hrs PRN for pain control Patient las seen at [facility] 05/09/2023, back then they had recommended medial branch blocks at the lumbar facet to see if he would be a candidate for the radiofrequency neurotomy ablation procedure. Patient's main issue right now is his inability to get in and out of bed safely, he also needs to be able to position his bed for comfort regarding pain. He would benefit from a semi electric bed , he requires frequent changes in body positioning due to pain, for both his back and his legs. He also has COPD and requires the bed to be elevated greater than 30 degrees. He also would benefit from railings to prevent falls Assessment & Plan (12/18/2023 9:41 AM EDT): Pt with chronic low back pain He has a History of L4-L5 disc surgery in 1986 in [place]. Acetaminophen had been ineffective as had ibuprofen. He was referred to PT , Tramadol helped with the pain. On Lidoderm patches. MRI of LS spine 02/07/2020 that showed: At L5-S1 there is facet arthropathy and is a posterior disc protrusion extending into the neural foramina bilaterally with impingement on the exiting L5 nerve roots, as well as on the traversing left S1 nerve root. There appear to be sequelae of a left hemilaminectomy. At L1-L2 there is a posterior disc osteophyte complex extending into the left neural foramen with impingement on the exiting left L1 nerve root. There is narrowing of the left subarticular recess with likely impingement on the traversing left L2 nerve root. There is no central stenosis. At L3-L4 there is facet arthropathy and there is a posterior disc protrusion. There is narrowing of the right subarticular recess and there is impingement on the traversing right L4 nerve root. There is mild central stenosis. Evaluated by [facility] last note 12/11/2021 they recommended PT and f/u for trial of epidural injections pt had good results. Plain films of his LS spine showed: There is multi-level lower thoracic and lumbar degenerative disc disease, spondylosis and facet arthropathy. Degenerative disc disease most pronounced at T12-L1, L1-L2 and L5-S1, where it is severe. X-Ray and Hips and pelvis showed: No acute visible fracture or dislocation. 2. Degenerative changes of the bilateral femoral acetabular joints. 3. Degenerative arthropathy of the lower lumbar spine. Pt received PT He has been taking Tramadol 1 to 2 tabs po q 12 hrs PRN for pain control Patient las seen at [facility] 05/09/2023, back then they had recommended medial branch blocks at the lumbar facet to see if he would be a candidate for the radiofrequency neurotomy ablation procedure Assessment & Plan (08/12/2023 2:07 PM EDT): Pt with chronic low back pain He has a History of L4-L5 disc surgery in 1986 in [place]. Acetaminophen had been ineffective as had ibuprofen. He was referred to PT , Tramadol helped with the pain. On Lidoderm patches. MRI of LS spine 02/07/2020 that showed: At L5-S1 there is facet arthropathy and is a posterior disc protrusion extending into the neural foramina bilaterally with impingement on the exiting L5 nerve roots, as well as on the traversing left S1 nerve root. There appear to be sequelae of a left hemilaminectomy. At L1-L2 there is a posterior disc osteophyte complex extending into the left neural foramen with impingement on the exiting left L1 nerve root. There is narrowing of the left subarticular recess with likely impingement on the traversing left L2 nerve root. There is no central stenosis. At L3-L4 there is facet arthropathy and there is a posterior disc protrusion. There is narrowing of the right subarticular recess and there is impingement on the traversing right L4 nerve root. There is mild central stenosis. Evaluated by [facility] last note 12/11/2021 they recommended PT and f/u for trial of epidural injections pt had good results. Plain films of his LS spine showed: There is multi-level lower thoracic and lumbar degenerative disc disease, spondylosis and facet arthropathy. Degenerative disc disease most pronounced at T12-L1, L1-L2 and L5-S1, where it is severe. X-Ray and Hips and pelvis showed: No acute visible fracture or dislocation. 2. Degenerative changes of the bilateral femoral acetabular joints. 3. Degenerative arthropathy of the lower lumbar spine. Pt received PT He has been taking Tramadol 1 to 2 tabs po q 12 hrs PRN for pain control Patient las seen at [facility] 04/2023 Assessment & Plan (04/15/2023 10:48 AM EST): Pt here for a f/u regarding his acute on chronic low back pain He has a History of L4-L5 disc surgery in 1986 in [place]. Acetaminophen had been ineffective as had ibuprofen. He was referred to PT , Tramadol helped with the pain. On Lidoderm patches. MRI of LS spine 02/07/2020 that showed: At L5-S1 there is facet arthropathy and is a posterior disc protrusion extending into the neural foramina bilaterally with impingement on the exiting L5 nerve roots, as well as on the traversing left S1 nerve root. There appear to be sequelae of a left hemilaminectomy. At L1-L2 there is a posterior disc osteophyte complex extending into the left neural foramen with impingement on the exiting left L1 nerve root. There is narrowing of the left subarticular recess with likely impingement on the traversing left L2 nerve root. There is no central stenosis. At L3-L4 there is facet arthropathy and there is a posterior disc protrusion. There is narrowing of the right subarticular recess and there is impingement on the traversing right L4 nerve root. There is mild central stenosis. Evaluated by [facility] last note 12/11/2021 they recommended PT and f/u for trial of epidural injections pt had good results. Today he tells me 3 months ago he fell , since [facility] he has been having low back pain that radiates to his right hip and leg Plain films of his LS spine showed: There is multi-level lower thoracic and lumbar degenerative disc disease, spondylosis and facet arthropathy. Degenerative disc disease most pronounced at T12-L1, L1-L2 and L5-S1, where it is severe. X-Ray and Hips and pelvis showed: No acute visible fracture or dislocation. 2. Degenerative changes of the bilateral femoral acetabular joints. 3. Degenerative arthropathy of the lower lumbar spine. Pt received PT He has been taking Tramadol 1 to 2 tabs po q 12 hrs PRN for pain control Will refer to [facility] Assessment & Plan (12/12/2022 10:01 AM EDT): Pt here for a f/u regarding his acute on chronic low back pain He has a History of L4-L5 disc surgery in 1986 in [place]. Acetaminophen had been ineffective as had ibuprofen. He was referred to PT , Tramadol helped with the pain. On Lidoderm patches. MRI of LS spine 02/07/2020 that showed: At L5-S1 there is facet arthropathy and is a posterior disc protrusion extending into the neural foramina bilaterally with impingement on the exiting L5 nerve roots, as well as on the traversing left S1 nerve root. There appear to be sequelae of a left hemilaminectomy. At L1-L2 there is a posterior disc osteophyte complex extending into the left neural foramen with impingement on the exiting left L1 nerve root. There is narrowing of the left subarticular recess with likely impingement on the traversing left L2 nerve root. There is no central stenosis. At L3-L4 there is facet arthropathy and there is a posterior disc protrusion. There is narrowing of the right subarticular recess and there is impingement on the traversing right L4 nerve root. There is mild central stenosis. Evaluated by [facility] last note 12/11/2021 they recommended PT and f/u for trial of epidural injections pt had good results. Today he tells me 3 months ago he fell , since tyhen he has been having low back pain that radiates to his right hip and leg Plan: Plain films of his LS spine, pelvis and hip PT eval Assessment & Plan (03/28/2022 2:24 PM EST): Pt here for a f/u regarding his chronic low back pain He has a History of L4-L5 disc surgery in 1986 in [place]. Acetaminophen had been ineffective as had ibuprofen. He was referred to PT , Tramadol helped with the pain. On Lidoderm patches. MRI of LS spine 02/07/2020 that showed: At L5-S1 there is facet arthropathy and is a posterior disc protrusion extending into the neural foramina bilaterally with impingement on the exiting L5 nerve roots, as well as on the traversing left S1 nerve root. There appear to be sequelae of a left hemilaminectomy. At L1-L2 there is a posterior disc osteophyte complex extending into the left neural foramen with impingement on the exiting left L1 nerve root. There is narrowing of the left subarticular recess with likely impingement on the traversing left L2 nerve root. There is no central stenosis. At L3-L4 there is facet arthropathy and there is a posterior disc protrusion. There is narrowing of the right subarticular recess and there is impingement on the traversing right L4 nerve root. There is mild central stenosis. Evaluated by [facility] last note 12/11/2021 they recommended PT and f/u for trial of epidural injections pt had good results Alzheimer's dementia 08/16/2013 Assessment & Plan (12/18/2023 9:36 AM EDT): Patient here for a follow up Doing well Mini mental of 05/17/13 (scanned). Head CT 06/11/10 normal. 05/19/13 RPR NR, TSH 2.75, B12 324, folate 14. Carries a Dx of Alzheimer's type dementia. Currently on Namenda 5mg daily Assessment & Plan (08/12/2023 1:43 PM EDT): Doing well Mini mental of 05/17/13 (scanned). Head CT 06/11/10 normal. 05/19/13 RPR NR, TSH 2.75, B12 324, folate 14. Alzheimer's type dementia. Currently on Namenda 5mg daily Assessment & Plan (12/12/2022 9:44 AM EDT): Doing well Mini mental of 05/17/13 (scanned). Head CT 06/11/10 normal. 05/19/13 RPR NR, TSH 2.75, B12 324, folate 14. Alzheimer's type dementia. Currently on Namenda 5mg daily Assessment & Plan (03/28/2022 2:25 PM EST): Doing well Mini mental of 05/17/13 (scanned). Head CT 06/11/10 normal. 05/19/13 RPR NR, TSH 2.75, B12 324, folate 14. Alzheimer's type dementia. Currently on Namenda 5mg daily and can increased dose at next visit as needed. Impaired fasting glucose 10/09/2012 Assessment & Plan (12/18/2023 9:39 AM EDT): Last glucose 103 1 year ago. Will repeat. Atherosclerosis of coronary artery 04/21/2006 Assessment & Plan (12/18/2023 9:38 AM EDT): Currently doing well, denies any chest pain, no sob Followed at [facility] last note 07/2022 Pt is stable with no medication changes. 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 Stress test 04/19/11 with normal perfusion and EF of 70%. htn and lipids well controlled. Assessment & Plan (03/28/2022 2:24 PM EST): Currently doing well, no chest pain, no sob Followed at [facility] and stable with no medication changes. 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 Stress test 04/19/11 with normal perfusion and EF of 70%. htn and lipids well controlled. Depressive disorder 04/21/1958 Hyperlipidemia 04/21/1958 Assessment & Plan (12/18/2023 9:26 AM EDT): Patient with elevated lipids. Most recent lipid profile from: Component Ref Range & Units (12/17/22) (10/29/21) (10/29/21) (03/07/20) Triglycerides <150 mg/dL 158 High 135 135 R 195 High Comment: Desirable Triglyceride: less than 150 mg/dLBorderline High Triglyceride 150-199 mg/dLHigh Triglyceride: 200-499 mg/dLVery High Triglyceride: greater than or equal to 5OO mg/dL Cholesterol <200 mg/dL 198 154 R Comment: Desirable Cholesterol: less than 200 mg/dLBorderline High Cholesterol: 200-239 mg/dLHigh Cholesterol: greater than 239 mg/dL LDL Cholesterol Calculated <100 mg/dL 134 High Comment: Desirable LDL: less than 100 mg/dLNear Optimal/Above Optimal LDL: 110- 129 mg/dLBorderline High LDL: 130-159 mg/dLHigh LDL: 160-189 mg/dLVery High LDL: greater than or equal to 190 mg/dL HDL Cholesterol >40 mg/dL 33 Low 44 R 36 Low R Currently on a regimen of: Atorvastatin 40 mg op q pm. Repeat Lipid profile Plan: continue current regimen advised to try to adhere to a low cholesterol diet, counseled and educated about diet and exercise Assessment & Plan (04/15/2023 9:27 AM EST): Patient with elevated lipids. Most recent lipid profile from: Component Ref Range & Units 3 mo ago (12/17/22) 1 yr ago (10/29/21) 1 yr ago (10/29/21) 3 yr ago (03/07/20) Triglycerides <150 mg/dL 158??High?? 135 135 R 195??High?? Comment: Desirable Triglyceride: ? less than 150 mg/dLBorderline High Triglyceride ??150-199 mg/dLHigh Triglyceride: ?200-499 mg/dLVery High Triglyceride: ? greater than or equal to ?5OO mg/dL Cholesterol <200 mg/dL 198 154 R Comment: Desirable Cholesterol: ?less than 200 mg/dLBorderline High Cholesterol: ??200-239 mg/dLHigh Cholesterol: ? greater than 239 mg/dL LDL Cholesterol Calculated <100 mg/dL 134??High?? Comment: Desirable LDL: ? less than 100 mg/dLNear Optimal/Above Optimal LDL: ??110-129 mg/dLBorderline High LDL: ? 130-159 mg/dLHigh LDL: ?160-189 mg/dLVery High LDL: ? greater than or equal to ? 190 mg/dL HDL Cholesterol >40 mg/dL 33??Low?? 44 R 36??Low?? R Currently on a regimen of: Atorvastatin 40 mg op q pm Plan: continue current regimen advised to try to adhere to a low cholesterol diet, counseled and educated about diet and exercise Assessment & Plan (12/12/2022 9:42 AM EDT): Patient with elevated lipids. Most recent lipid profile from: 10/29/2021 shows a total cholesterol of: 154 triglycerides of: 135 HDL of: 44 and LDL of: 87 Currently on a regimen of: Atorvastatin 40 mg op q pm Will repeat Lipid profile Plan: continue current regimen advised to try to adhere to a low cholesterol diet, counseled and educated about diet and exercise Assessment & Plan (03/28/2022 2:20 PM EST): Patient with elevated lipids. Most recent lipid profile from: 10/29/2021 shows a total cholesterol of: 154 triglycerides of: 135 HDL of: 44 and LDL of: 87 Currently on a regimen of: Atorvastatin 40 mg op q pm . Plan: continue current regimen advised to try to adhere to a low cholesterol diet, counseled and educated about diet and exercise Resolved Problems Problem Noted Date Diagnosed Date Resolved Date Pain of right thumb 12/12/2022 12/18/19 Assessment & Plan (04/15/2023 9:33 AM EST): Pt with c/o painful right thumb On exam he had a tiny area of superficial induration right anterior base of thumb approx 2 mm Etiology ? Tenosynovitis ? 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 Tenosynovitis ? Plan: Plain films, Ortho eval might benefit from a steroid injection Encounters Date Type Department Care Team Description 08/06/2024 Refill [facility] MEDICINE [address] [place] [address] Rajendra Hogue MD Essential hypertension 07/14/2024 Refill [facility] [address] [place] [address] Rajendra Hogue MD Depressive disorder 07/13/2024 Telephone [facility] MEDICINE [address] [place] [address] Rajendra Hogue MD Medication Question 07/12/2024 Refill [facility] [address] [place] [address] Rajendra Hogue MD 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 sciatica 07/09/2024 Refill [facility] [address] [place] [address] Rajendra Hogue MD Pulmonary emphysema, unspecified emphysema type ([facility]) 06/29/2024 Refill [facility] [address] [place] [address] Rajendra Hogue MD 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 sciatica 06/23/2024 Refill [facility] [address] [place] [address] Rajendra Hogue MD 06/10/2024 Telephone [facility]S [address] [place] [address] Rajendra Hogue MD Durable Medical Equipment 06/07/2024 Refill [facility] [address] [place] [address] Rajendra Hogue MD Depressive disorder; 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, psychotic disturbance, mood disturbance, or anxiety, unspecified timing of dementia onset (CMS/HCC); Atherosclerosis of [place] coronary artery of [place] heart without angina pectoris 06/02/2024 Refill [facility]S [address] [place] [address] Rajendra Hogue MD 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 sciatica 05/18/2024 Refill [facility] MEDICINE [address] [place] [address] Rajendra Hogue MD Seasonal allergies; Pulmonary emphysema, unspecified emphysema type (CMS/HCC) from Last 3 Months Immunizations Name Administration Dates Next Due Influenza High-dose Quadrivalent Preservative Fr ee 03/01/2021 Influenza injectable quadrivalent preservative f ree 03/28/2022 Influenza, IIV3, injectable 02/11/2011 Influenza, Split (incl. purified surface antigen ) 01/27/2013,02/24/2012 Moderna Covid-19 Vaccine 12+ 08/15/2020,07/19/19 21 Pneumococcal Conjugate PCV 13 11/07/2015 Pneumococcal Polysaccharide PPSV23 02/16/2013, TD (adult), 2 Lf tetanus tox oid, preservative free, adsorbed 09/09/2005 Tdap 12/18/2023,11/08/2011 Zoster, live 12/29/2014 Social History Tobacco Use Types Packs/Day Years Used Date Smoking Tobacco: Every Day Cigarettes Passive Smoke Exposure: Current Smokeless Tobacco: Never Tobacco Cessation:Ready to Q uit: Not Asked; Counseling Given: Not Answered Depression Answer Date Recorded Patient Health Questionnaire-9 Score 1 12/18/2023 Patient Health Questionnaire-9 Score 1 12/18/2023 Last PHQ-9: Questionnaire Data Not on file 0 12/18/2023 Housing Stability Answer Date Recorded What is your housing situation today? I have georgiana scarlett 12/18/[address] you li [...] Orientation Straight 02/18/2022 10 :18 AM EDT Last Filed Vital Signs Vital Sign Reading Time Taken Comments Blood Pressure 138/88 04/13/2024 9:38 AM EST Pulse 93 04/13/2024 9:20 AM EST Temperature 36.2 ??C (97.1 ??F) 04/13/2024 9:20 AM ES T Respiratory Rate 20 04/13/2024 9:20 AM EST Oxygen Saturation 96% 04/13/2024 9:20 AM EST Inhaled Oxygen Concentration - - Weight 65.1 kg (143 lb 9.6 oz) 04/13/2024 9:20 A M EST Height 157.5 cm (5' 2 ) 04/13/2024 9:20 AM EST Body Mass Index 26.26 04/13/2024 9:20 AM EST Plan of Treatment Upcoming Encounters Date Type Department Care Team (Late st Contact Info) Description 08/24/2024 10:15 AM EDT Office Visit [facility] MEDICINE [address] [place], [place] [phone] Rajendra Hogeu MD [address] [place], [place] [phone] Health Maintenance Due Date Last Done Comments Zoster Vaccines (2 of 3) 02/23/2015 12/29/2014 RSV Patients and Patients Aged 60 years or older (1 - 1-dose 75+ series) 2016 Influenza Vaccine (#1) 2024 , 03/01/2021, 01/27/2013, Additional history exists Postponed from 12/21/2023 (Patient Refused) Depression Screening 12/17/2024 12/18/2023, 12/18/19 SDOH Screening 12/17/2024 12/18/2023 Alcohol/Substance Use Screening 04/13/2025 04/13/2024 COVID-19 Vaccine (3 - season) 2025 08/15/2020, 07/18/2020 Postponed from 12/21/2023 (Patient Refused) Tobacco Screening 04/13/2025 04/13/2024 Lipid Panel 12/24/2028 12/25/2023, 11/20, 10/29/2021, Additional history exists DTaP/Tdap/Td Vaccines (3 - Td or Tdap) 12/17/2033 12/18/2023, 11/08/2011, 09/09/2005 Pneumococcal Vaccine: 50+ Years Completed 11/07/2015, 02/16/2013, 07/20/2007 HIB Vaccines Aged Out No longer eligi ble based on patient's age to complete this topic HPV Vaccines Aged Out No longer eligi ble based on patient's age to complete this topic Hepatitis A Vaccines Aged Out No long er eligible based on patient's age to complete this topic Hepatitis B Vaccines Aged Out No long er eligible based on patient's age to complete this topic IPV Vaccines Aged Out No longer eligi ble based on patient's age to complete this topic Meningococcal Vaccine Aged Out No marialuisa frank eligible based on patient's age to complete this topic RSV under 20 months Aged Out No longe r eligible based on patient's age to complete this topic Rotavirus Vaccines Aged Out No longer eligible based on patient's age to complete this topic Procedures Procedure Name Priority Date/Time Associated Diagnosis Comments LIPID PANEL, STANDARD Routine 12/25/2023 8:04 AM EDT Mixed hyperlipidemia from Last 3 Months or Most Recently Relevant to Health Maintenance Results * (ABNORMAL) Lipid Panel, Standard (12/25/2023 8:04 AM EDT) Triglycerides 208(H) <150 mg/dL [facility] Comment:Desirable Triglyceri de: less than 150 mg/dLBorderline High Triglyceride 150-199 mg/dLHigh Triglyceride: 200-499 mg/dLVery High Triglyceride: greater than or equal to 5OO mg/dL Cholesterol 146 <200 mg/dL [facility] Comment:Desirable Cholestero l: less than 200 mg/dLBorderline High Cholesterol: 200-239 mg/dLHigh Cholesterol: greater than 239 mg/dL LDL Cholesterol Calculated 75 <100 mg/dL [facility] Comment:Desirable LDL: less than 100 mg/dLNear Optimal/Above Optimal LDL: 110- 129 mg/dLBorderline High LDL: 130-159 mg/dLHigh LDL: 160-189 mg/dLVery High LDL: greater than or equal to 190 mg/dL HDL Cholesterol 30(L) >40 mg/dL [facility] Comment:Desirable HDL: great er than 40 mg/dL Note: This HDL assay may give artificially low results in patients with liver disease. Blood Venous blood specimen / Unknown 12/25/2023 8:04 AM EDT 12/25/2023 11:23 AM EDT Rajendra Ornelas MD LAB BLOOD ORDERABLES Final Result [facility] [address] [place], [place] [phone] from Last 3 Months or Most Recently Relevant to Health Maintenance [place] [place] [address] [address] [address] [place] [address] [phone] [place] [address] [phone] [place] [phone] Care Teams Ribbon Hanking Machine Operator Relationship Specialty Start Date End Date Rajendra Hogue MD [address] [place] [phone] PCP - General Internal Medicine 03/03/14
--- OUTSIDE RECORDS SUMMARY | 2024-08-10 08:56 | XMS_ITS | Encounter Summary ---
Author Organization [facility] [facility] Address [address] [facility] 7t [place] [address] Care Team Providers Care Supervisor Pumping Station Name Role Phone Rajendra Hogue MD Primary Care Provide r Reason for Visit * Reason Comments Med Refill Encounter Details Date Type Department Care Team (Late st Contact Info) Description 08/28/2023 Refill [facility] MED & PEDS [address] [place] [address] Rajendra Hogue MD [address] [place], [place] [phone] 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 sciatica [...] Description 08/24/2024 10:15 AM EDT Office Visit [facility] MEDICINE [address] [place], [place] [phone] Rajendra Hogue MD [address] [place] [phone] documented as of this encounter Visit Diagnoses Diagnosis 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 sciatica documented in this encounter Care Teams Supervisor Pumping Station Relationship Specialty Start Date End Date Rajendra Hogue MD [address] [place] [address] [phone] PCP - General Internal Medicine 03/03/14 documented as of this encounter
--- OUTSIDE RECORDS SUMMARY | 2024-08-10 08:56 | XMS_ITS | Encounter Summary ---
Author Organization [facility] Address [address] [facility] 7t [place] [address] Care Team Providers Care Prop Making Supervisor Name Role Phone Rajendra Hogue MD Primary Care Provide r Reason for Visit * Reason Comments Med Refill Encounter Details Date Type Department Care Team (Late st Contact Info) Description 08/28/2023 Refill [facility] MED & PEDS [address] [place] [address] Rajendra Hogue MD [address] [place], [place] [phone] 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 sciatica [...] Description 08/24/2024 10:15 AM EDT Office Visit [facility] MEDICINE [address] [place], [place] [phone] Rajendra Hogue MD [address] [place] [phone] documented as of this encounter Visit Diagnoses Diagnosis 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 sciatica documented in this encounter Care Teams Prop Making Supervisor Relationship Specialty Start Date End Date Rajendra Hogue MD [address] [place] [address] [phone] PCP - General Internal Medicine 03/03/14 documented as of this encounter
--- OUTSIDE RECORDS SUMMARY | 2024-08-10 08:56 | XMS_ITS | Encounter Summary ---
Author Organization [email or web address] [facility] Address [address] [facility] 7t [place] [address] Care Team Providers Care Fitness Technician Name Role Phone Rajendra Hogue MD Primary Care Provide r Encounter Details Date Type Department Care Team (Late st Contact Info) Description 03/08/[address] [facility] MEDICINE [address] [place] [address] [phone] Rajendra Hogue MD [address] [place] [address] [phone] Social History Tobacco Use Types Packs/Day Years [...] Description 08/24/2024 10:15 AM EDT Office Visit [facility] MEDICINE [address] [place] [address] [phone] Rajendra Hogue MD [address] [place], [place] [phone] documented as of this encounter Procedures Procedure Name Priority Date/Time Associated Diagnosis Comments LIPID PANEL, STANDARD Routine 10/29/2021 COLONOSCOPY Routine 02/21/2017 documented in this encounter Results * Lipid Panel, Standard (10/29/2021) LDL HDL Ratio 3.5 Triglycerides 135 40 - 160 mg/dL Cholesterol 154 0 - 200 mg/dL HDL Cholesterol 44 35 - 70 mg/dL LDL Cholesterol 87 mg/dL Blood Venous blood specimen / Unknown us Historical Provider LAB BLOOD ORDERABLES Niharika l Result * Colonoscopy (02/21/2017) Colonoscopy Normal Comment:Dr Suzette Alexis Historical Provider HEALTH MAINTENANCE Final Result documented in this encounter Visit Diagnoses Not on filedocumented in this encounter Care Teams Fitness Technician Relationship Specialty Start Date End Date Rajendra Hogue MD [address] [place] [phone] PCP - General Internal Medicine 03/03/14 documented as of this encounter
--- OUTSIDE RECORDS SUMMARY | 2024-08-10 08:56 | XMS_ITS | Encounter Summary ---
Author Organization [employer] [facility] Address [address] [facility] 7t [place] [address] Care Team Providers Care Tire Builder Heavy Service Name Role Phone Rajendra Hogue MD Primary Care Provide r Reason for Visit * Reason Comments Med Refill Encounter Details Date Type Department Care Team ([facility] st Contact Info) Description 03/31/2023 Refill [facility] [address] [place] [address] Earnestine Juan FNP [address] [place] [address] Social History Tobacco Use Types Packs/Day Years [...] t he electric, gas, oil or water [employer] threatened to shut off services in your [...] Description 08/24/2024 10:15 AM EDT Office Visit [facility] MEDICINE [address] [place], [place] [phone] Rajendra Hogue MD [address] [place] [phone] documented as of this encounter Visit Diagnoses Not on filedocumented in this encounter Care Teams Tire Builder Heavy Service Relationship Specialty Start Date End Date Rajendra Hogue MD [address] [place] [phone] PCP - General Internal Medicine 03/03/14 documented as of this encounter
--- OUTSIDE RECORDS SUMMARY | 2024-08-10 08:56 | XMS_ITS | Encounter Summary ---
Author Organization [facility] Address [address] [facility] 7t [place] [address] Care Team Providers Care Waiter/Waitress Second Class Name Role Phone Rajendra Hogue MD Primary Care Provide r Reason for Visit * Reason Comments Med Refill Encounter Details Date Type Department Care Team (Late st Contact Info) Description 06/29/2024 Refill [facility] MED & PEDS [address] [place] [address] Rajendra Hogue MD [address] [facility] [place] [address] 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 sciatica [...] Description 08/24/2024 10:15 AM EDT Office Visit [facility] MEDICINE [address] [place] [address] Rajendra Hogue MD [address] [place] [address] documented as of this encounter Visit Diagnoses Diagnosis 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 sciatica documented in this encounter Additional Health Concerns Assessment Noted Time PHQ-9 Depression Total Score: 1 12/18/19 24 9:36 AM EDT documented as of this encounter Care Teams Waiter/Waitress Second Class Relationship Specialty Start Date End Date Rajendra Hogue MD [address] [place] [phone] PCP - General Internal Medicine 03/03/14 documented as of this encounter
--- OUTSIDE RECORDS SUMMARY | 2024-08-10 08:56 | XMS_ITS | Encounter Summary ---
Author Organization [facility] [facility] Address [address] [facility] 7t [place] [address] Care Team Providers Care Label Designer Name Role Phone Rajendra Hogue MD Primary Care Provide r Reason for Visit * Reason Comments Med Refill Encounter Details Date Type Department Care Team (Late st Contact Info) Description 08/28/2023 Refill [facility] MED & PEDS [address] [place] [address] Rajendra Hogue MD [address] [place], [place] [phone] 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 sciatica [...] Description 08/24/2024 10:15 AM EDT Office Visit [facility] MEDICINE [address] [place], [place] [phone] Rajendra Hogue MD [address] [place] [phone] documented as of this encounter Visit Diagnoses Diagnosis 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 sciatica documented in this encounter Care Teams Label Designer Relationship Specialty Start Date End Date Rajendra Hogue MD [address] [place] [address] [phone] PCP - General Internal Medicine 03/03/14 documented as of this encounter
--- OUTSIDE RECORDS SUMMARY | 2024-08-10 08:56 | XMS_ITS | Encounter Summary ---
Author Organization [facility] Address [address] [facility] 7t [place] [address] Care Team Providers Care Wharf Tally Clerk Name Role Phone Rajendra Hogue MD Primary Care Provide r Reason for Visit * Reason Comments Med Refill Encounter Details Date Type Department Care Team ([facility] st Contact Info) Description 08/06/2024 Refill [facility] MEDICINE [address] [place] [address] Rajendra Hogue MD [address] [place], [place] [phone] Essential hypertension Social History Tobacco Use Types Packs/Day Years Used Date Smoking Tobacco: Every Day Cigarettes Passive Smoke Exposure: Current Smokeless Tobacco: Never Depression Answer Date Recorded Patient Health Questionnaire-9 Score 1 12/18/2023 Patient Health Questionnaire-9 Score 1 12/18/2023 Last PHQ-9: Questionnaire Data Not on file 0 12/18/2023 Housing Stability Answer Date Recorded What is your housing situation today? I have georgiana pantoja 12/18/[address] you li [...] 10:15 AM EDT Office Visit [facility] MEDICINE [address] [place] [address] Rajendra Hogue MD [address] [place] [address] documented as of this encounter Visit Diagnoses Diagnosis Essential hypertension Unspecified essential hypertension documented in this encounter Additional Health Concerns Assessment Noted Time PHQ-9 Depression Total Score: 1 12/18/19 24 9:36 AM EDT documented as of this encounter Care Teams Wharf Tally Clerk Relationship Specialty Start Date End Date Rajendra Hogue MD [address] [place] [address] PCP - General Internal Medicine 03/03/14 documented as of this encounter
--- OUTSIDE RECORDS SUMMARY | 2024-08-10 08:56 | XMS_ITS | Encounter Summary ---
Author Organization [employer] [facility] Address [address] [facility] 7t [place] [address] Care Team Providers Care Shed Hand Name Role Phone Rajendra Hogue MD Primary Care Provide r Reason for Visit * Reason Onset Date Comments Med Refill 12/29/2023 Encounter Details Date Type Department Care Team ([facility] st Contact Info) Description 12/29/2023 Telephone [facility] MEDICINE [address] [place] [address] Rajendra Hogue MD [address] [place], [place] [phone] Med Refill Social History Tobacco Use Types [...] encounter Miscellaneous Notes * Telephone Encounter - Domenic Ornelas - 12/29/2023 9:56 AM EDT TC from pt requesting medication refill. Medications needing refill : traMADol (Ultram) 50 MG tablet To be sent to: [facility] - [place], [place] - [address] [place] [address] documented in this encounter Plan of Treatment Upcoming Encounters Date Type Department Care Team ([facility] st Contact Info) Description 08/24/2024 10:15 AM EDT Office Visit [facility] MEDICINE [address] [place] [address] Rajendra Hogue MD [address] [place] [address] documented as of this encounter Visit Diagnoses Not on filedocumented in this encounter Additional Health Concerns Assessment Noted Time PHQ-9 Depression Total Score: 1 12/18/19 24 9:36 AM EDT documented as of this encounter Care Teams Shed Hand Relationship Specialty Start Date End Date Rajendra Hogue MD [address] [place] [address] PCP - General Internal Medicine 03/03/14 documented as of this encounter
== END 2024-08-10 09:36 | disposition home or self-care (01) ==
LOC: HO.HUSH 08:36
PROVIDERS: PCP Internal Medicine; Visit Provider Urology
DX: N40.0 Benign prostatic hyperplasia without lower urinary tract symptoms (principal)
CPT/HCPCS: 99213; G2211

== ENCOUNTER → 2024-08-10 08:35 | Outpatient (BNVA) | payer OTHER, SELFPAY | PROVIDERS: PCP Internal Medicine; Visit Provider Urology | DX: N40.0 Benign prostatic hyperplasia without lower urinary tract symptoms (principal) | CPT/HCPCS: 99212 ==

== ENCOUNTER 2025-01-05 09:58 | Outpatient (REF) | payer OTHER, SELFPAY ==
--- NOTE | ~2025-01-05 | US_ITS ---
EXAMINATION: US RETROPERITONEUM HISTORY: N40.0 - Benign prostatic hyperplasia without lower urinary tract symptoms TECHNIQUE: Real-time grayscale ultrasound imaging of the kidneys was performed and images were reviewed. COMPARISON: Comparison is made with the prior examination 08/12/2017. FINDINGS: Right kidney: The right kidney measures 9.6 x 6.1 x 4.1 cm. Renal parenchymal echotexture and thickness are normal. Multiple cysts are noted including a 3.0 x 2.5 x 2.7 cm cyst in the interpolar region medially, a 2.0 x 1.4 x 1.2 cm cyst in the interpolar region laterally, and a 5.1 x 3.7 x 4.4 cm cyst at the lower pole. There is no hydronephrosis or renal calculi. Left Kidney: The left kidney measures 12.9 x 6.1 x 5.4 cm. Renal parenchymal echotexture and thickness are normal. Multiple cysts are noted including a 13.8 x 9.9 x 11.2 cm cyst in the interpolar region and a 1.9 x 1.3 x 2.0 cm cyst at the lower pole. There is no hydronephrosis or renal calculi. The urinary bladder is unremarkable. Bilateral ureteral jets are identified. Before voiding, the urinary bladder measured 11.2 x 8.0 x 9.0 cm, for an estimated volume of 422 mL. After voiding, the urinary bladder measured 8.5 x 5.5 x 7.1 cm, for an estimated volume of 174 mL. The prostate measures 4.6 x 4.2 x 4.7 cm, for an estimated volume of 45.7 mL. US/US retroperitoneal comp IMPRESSION: 1. Bilateral renal cysts as described. 2. Post void bladder residual of 174 mL. 3. Prostate volume of 45.7 mL. Electronically signed by: Shyam Beal MD 01/05/2025 11:23 AM EDT
--- OUTSIDE RECORDS SUMMARY | 2025-01-05 11:57 | XMS_ITS | Encounter Summary ---
Author Organization [employer] Address [address] [facility] 7t [place] [address] Care Team Providers Care Citrix Systems Administrator Name Role Phone Rajendra Hogue MD Primary Care Provide r Reason for Visit * Reason Comments Med Refill Encounter Details Date Type Department Care Team ([facility] st Contact Info) Description 03/31/2023 Refill [facility] [address] [place] [address] Earnestine Juan FNP [address] [place] [address] Social History Tobacco Use Types Packs/Day Years [...] Care Team (Late st Contact Info) Description 01/11/2025 1:00 PM EDT Immunization [facility] [address] [place] [phone] 03/01/2025 10:00 AM EST Office Visit [facility] MEDICINE [address] [place] [phone] Rajendra Hogue MD [address] [place] [phone] documented as of this encounter Visit Diagnoses Not on filedocumented in this encounter Care Teams [employer] Administrator Relationship Specialty Start Date End Date Rajendra Hogue MD [address] [place] [phone] PCP - General Internal Medicine 03/03/14 documented as of this encounter
--- OUTSIDE RECORDS SUMMARY | 2025-01-05 11:57 | XMS_ITS | Encounter Summary ---
Author Organization [employer] Address [address] [facility] 7t [place] [address] Care Team Providers Care Entry Level Account Manager Name Role Phone Rajendra Hogue MD Primary Care Provide r Reason for Visit * Reason Onset Date Comments Med Refill 10/30/2023 Encounter Details Date Type Department Care Team ([facility] st Contact Info) Description 10/30/2023 Telephone [facility] MEDICINE [address] [place] [address] Rajendra Hogue MD [address] [place], [place] [phone] Med Refill Social History Tobacco Use Types [...] encounter Miscellaneous Notes * Telephone Encounter - Rey Portillo - 10/30/2023 10:34 AM EDT TC from pt requesting medication refill. Medications needing refill: traMADol (Ultram) 50 MG tablet To be sent to: [facility] documented in this encounter Plan of Treatment Upcoming Encounters Date Type Department Care Team (Late st Contact Info) Description 01/11/2025 1:00 PM EDT Immunization [facility] MEDICINE [address] [place] [address] 03/01/2025 10:00 AM EST Office Visit [facility] [address] [place] [phone] Rajendra Hogue MD [address] [place] [phone] documented as of this encounter Visit Diagnoses Not on filedocumented in this encounter Care Teams Entry Level Account Manager Relationship Specialty Start Date End Date Rajendra Hogue MD [address] [place] [phone] PCP - General Internal Medicine 03/03/14 documented as of this encounter
--- OUTSIDE RECORDS SUMMARY | 2025-01-05 11:57 | XMS_ITS | Encounter Summary ---
Author Organization [employer] Address 75 [facility] 7t [place] [address] Care Team Providers Care Financial Institution Treasurer Name Role Phone Rajendra Hogue MD Primary Care Provide r Reason for Visit * Reason Comments Med Refill Encounter Details Date Type Department Care Team ([facility] st Contact Info) Description 08/27/2023 Refill [facility] MED & PEDS [address] [place], [place] [phone] Rajendra Hogue MD [address] [place] [address] 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 sciatica Social History Tobacco Use Types Packs/Day Years Used Date Smoking Tobacco: Every Day Cigarettes Passive Smoke Exposure: Current Smokeless Tobacco: Never Housing Stability Answer Date Recorded What is your housing situation today? I have georgianalv pantoja 02/03/[address] you [...] Info) Description 01/11/2025 1:00 PM EDT Immunization [facility]INE [address] [place] [phone] 03/01/2025 10:00 AM EST Office Visit [facility] [address] [place] [phone] Rajendra Hogue MD [address] [place] [phone] documented as of this encounter Visit Diagnoses Diagnosis 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 sciatica documented in this encounter Care Teams Financial Institution Treasurer Relationship Specialty Start Date End Date Rajendra Hogue MD [address] [place] [phone] PCP - General Internal Medicine 03/03/14 documented as of this encounter
--- OUTSIDE RECORDS SUMMARY | 2025-01-05 11:57 | XMS_ITS | Encounter Summary ---
Author Organization [email or web address] Address 75 [facility] 7t [place] [address] Care Team Providers Care Bread Baker Name Role Phone Rajendra Hogue MD Primary Care Provide r Encounter Details Date Type Department Care Team (Late st Contact Info) Description 01/05/2025 Orders Only [facility] External Provider, [facility] Social History Tobacco Use Types Packs/Day Years [...] Info) Description 01/11/2025 1:00 PM EDT Immunization [facility] MEDICINE [address] [place] [address] [phone] 03/01/2025 10:00 AM EST Office Visit [facility] MEDICINE [address] [place] [address] [phone] Rajendra Hogue MD [address] [place] [address] [phone] documented as of this encounter Procedures Procedure Name Priority Date/Time Associated Diagnosis Comments US RETROPERITONEAL COMPLETE Routine 01/05/2025 10:34 AM EDT documented in this encounter Results * US Retroperitoneal Complete (01/05/2025 10:34 AM EDT) Anatomical Region Laterality Modality Ultrasound 01/05/2025 10:3 4 AM EDT Narrative 01/05/2025 11:26 AM EDT [address] [address] Ultrasound Report Signed Patient: Domenic Bender MR#: [id number] : 1940 Acct:[id number] Age/Sex: 84 / M ADM Date: 01/05/25 Loc: HO.US Attending Dr: Elke Cabrera MD Ordering Physician: Elke Cabrera MD Date of Service: 01/05/25 Procedure(s): US retroperitoneal comp Accession Number(s): [id number] cc: Elke Cabrera MD; Rajendra Vides MD Reason for Exam: N40.0 - Benign prostatic hyperplasia without lower urinary tract symptoms EXAMINATION: US RETROPERITONEUM HISTORY: N40.0 - Benign prostatic hyperplasia without lower urinary tract symptoms TECHNIQUE: Real-time grayscale ultrasound imaging of the kidneys was performed and images were reviewed. COMPARISON: Comparison is made with the prior examination 08/12/2017. FINDINGS: Right kidney: The right kidney measures 9.6 x 6.1 x 4.1 cm. Renal parenchymal echotexture and thickness are normal. Multiple cysts are noted including a 3.0 x 2.5 x 2.7 cm cyst in the interpolar region medially, a 2.0 x 1.4 x 1.2 cm cyst in the interpolar region laterally, and a 5.1 x 3.7 x 4.4 cm cyst at the lower pole. There is no hydronephrosis or renal calculi. Left Kidney: The left kidney measures 12.9 x 6.1 x 5.4 cm. Renal parenchymal echotexture and thickness are normal. Multiple cysts are noted including a 13.8 x 9.9 x 11.2 cm cyst in the interpolar region and a 1.9 x 1.3 x 2.0 cm cyst at the lower pole. There is no hydronephrosis or renal calculi. The urinary bladder is unremarkable. Bilateral ureteral jets are identified. Before voiding, the urinary bladder measured 11.2 x 8.0 x 9.0 cm, for an estimated volume of 422 mL. After voiding, the urinary bladder measured 8.5 x 5.5 x 7.1 cm, for an estimated volume of 174 mL. The prostate measures 4.6 x 4.2 x 4.7 cm, for an estimated volume of 45.7 mL. US/US retroperitoneal comp IMPRESSION: 1. Bilateral renal cysts as described. 2. Post void bladder residual of 174 mL. 3. Prostate volume of 45.7 mL. Electronically signed by: Shyam Beal MD 01/05/2025 11:23 AM EDT Dictated By: Shyam Beal MD Signed By: <Electronically signed by Shyam Beal MD in OV> 01/05/25 1123 DD/ 1034 TD/TT: 01/05/25 1107 Braider Operator: Procedure Note Donotuseinterpreter, Image - 01/05/[address] [address] Ultrasound Report Signed Patient: Jes Bender#: [id number] : 2Acct:[id number] Age/Sex: 84 / MADM Date: 01/05/25 Loc: HO.US Attending Dr: Elke Cabrera MD Ordering Physician: Elke Cabrera MD Date of Service: 01/05/25 Procedure(s): US retroperitoneal comp Accession Number(s): [id number] cc: Elke Cabrera MD; Rajendra Vides MD Reason for Exam: N40.0 - Benign prostatic hyperplasia without lowerurinary tract symptoms EXAMINATION: US RETROPERITONEUM HISTORY: N40.0 - Benign prostatic hyperplasia without lower urinary tract symptoms TECHNIQUE: Real-time grayscale ultrasound imaging of the kidneys was performed and images were reviewed. COMPARISON: Comparison is made with the prior examination 08/12/2017. FINDINGS: Right kidney: The right kidney measures 9.6 x 6.1 x 4.1 cm. Renal parenchymal echotexture and thickness are normal. Multiple cysts are noted including a 3.0 x 2.5 x 2.7 cm cyst in the interpolar region medially, a 2.0 x 1.4 x 1.2 cm cyst in the interpolar region laterally, and a 5.1 x 3.7 x 4.4 cm cyst at the lower pole. There is no hydronephrosis or renal calculi. Left Kidney: The left kidney measures 12.9 x 6.1 x 5.4 cm. Renal parenchymal echotexture and thickness are normal. Multiple cysts are noted including a 13.8 x 9.9 x 11.2 cm cyst in the interpolar region and a 1.9 x 1.3 x 2.0 cm cyst at the lower pole. There is no hydronephrosis or renal calculi. The urinary bladder is unremarkable. Bilateral ureteral jets are identified. Before voiding, the urinary bladder measured 11.2 x 8.0 x 9.0 cm, for an estimated volume of 422 mL. After voiding, the urinary bladder measured 8.5 x 5.5 x 7.1 cm, for an estimated volume of 174 mL. The prostate measures 4.6 x 4.2 x 4.7 cm, for an estimated volume of 45.7 mL. US/US retroperitoneal comp IMPRESSION: 1. Bilateral renal cysts as described. 2. Post void bladder residual of 174 mL. 3. Prostate volume of 45.7 mL. Electronically signed by: Shyam Beal MD 01/05/2025 11:23 AM EDT RP Dictated By: Shyam Beal MD Signed By: <Electronically signed by Shyam Beal MD in OV> 01/05/25 1123 DD/ 1034 TD/TT: 01/05/25 1107 Braider Operator: [facility] External Provider IMG US PROCEDURES Edited Result - Final documented in this encounter Visit Diagnoses Not on filedocumented in this encounter Additional Health Concerns Assessment Noted Time PHQ-9 Depression Total Score: 1 12/18/19 24 9:36 AM EDT documented as of this encounter Care Teams Bread Baker Relationship Specialty Start Date End Date Rajendra Hogue MD [address] [place] [address] PCP - General Internal Medicine 03/03/14 documented as of this encounter
--- OUTSIDE RECORDS SUMMARY | 2025-01-05 11:57 | XMS_ITS | Encounter Summary ---
Author Organization [employer] Address [address] [facility] 7t [place] [address] Care Team Providers Care Division Sergeant Name Role Phone Rajendra Hogue MD Primary Care Provide r Reason for Visit * Reason Comments Med Refill Encounter Details Date Type Department Care Team ([facility] st Contact Info) Description 08/28/2023 Refill [facility] MED & PEDS [address] [place], [place] [phone] Rajendra Hogue MD [address] [place] [address] 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 sciatica [...] PM EDT Immunization [facility] MEDICINE [address] [place] [phone] 03/01/2025 10:00 AM EST Office Visit [facility] [address] [place] [phone] Rajendra Hogue MD [address] [place] [phone] documented as of this encounter Visit Diagnoses Diagnosis 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 sciatica documented in this encounter Care Teams Division Sergeant Relationship Specialty Start Date End Date Rajendra Hogue MD [address] [place] [phone] PCP - General Internal Medicine 03/03/14 documented as of this encounter
--- OUTSIDE RECORDS SUMMARY | 2025-01-05 11:57 | XMS_ITS | Encounter Summary ---
Author Organization [employer] Address [address] [place] [address] 7t [place] [address] Care Team Providers Care Manager Product Management Name Role Phone Rajendra Hogue MD Primary Care Provide r Reason for Visit * Reason Comments Med Refill Encounter Details Date Type Department Care Team (Late st Contact Info) Description 05/01/2022 Refill [facility] MEDICINE [address] [place] [address] [phone] Rajendra Hogue MD [address] [place] [address] [phone] 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 sciatica [...] Info) Description 01/11/2025 1:00 PM EDT Immunization [facility] MEDICINE [address] [place] [address] [phone] 03/01/2025 10:00 AM EST Office Visit [facility] MEDICINE [address] [place] [address] [phone] Rajendra Hogue MD [address] [place] [address] [phone] documented as of this encounter Visit Diagnoses Diagnosis 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 sciatica documented in this encounter Care Teams Manager Product Management Relationship Specialty Start Date End Date Rajendra Hogue MD [address] [place] [address] PCP - General Internal Medicine 03/03/14 documented as of this encounter
--- OUTSIDE RECORDS SUMMARY | 2025-01-05 11:57 | XMS_ITS | Encounter Summary ---
Author Organization [employer] Address [address] [facility] 7t [place] [address] Care Team Providers Care Auto Specialty Services Manager Name Role Phone Rajendra Hogue MD Primary Care Provide r Reason for Visit * Reason Comments Med Refill Encounter Details Date Type Department Care Team ([facility] st Contact Info) Description 08/28/2023 Refill [facility] MED & PEDS [address] [place], [place] [phone] Rajendra Hogue MD [address] [place] [address] 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 sciatica [...] Info) Description 01/11/2025 1:00 PM EDT Immunization [facility] MEDICINE [address] [place] [phone] 03/01/2025 10:00 AM EST Office Visit [facility] MEDICINE [address] [place] [address] Rajendra Hogue MD [address] [place] [address] documented as of this encounter Visit Diagnoses Diagnosis 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 sciatica documented in this encounter Care Teams Auto Specialty Services Manager Relationship Specialty Start Date End Date Rajendra Hogue MD [address] [place] [phone] PCP - General Internal Medicine 03/03/14 documented as of this encounter
--- OUTSIDE RECORDS SUMMARY | 2025-01-05 11:57 | XMS_ITS | Encounter Summary ---
Author Organization [employer] Address [address] [facility] 7t [place] [address] Care Team Providers Care Color Worker Name Role Phone Rajendra Hogue MD Primary Care Provide r Reason for Visit * Reason Comments Med Refill Encounter Details Date Type Department Care Team ([facility] st Contact Info) Description 01/03/2025 Refill [facility] MED & PEDS [address] [place], [place] [phone] Rajendra Hogue MD [address] [place] [address] Depressive disorder Social History Tobacco Use Types Packs/Day Years [...] Info) Description 01/11/2025 1:00 PM EDT Immunization [facility] MEDICINE [address] [place] [address] 03/01/2025 10:00 AM EST Office Visit [facility] MEDICINE [address] [place] [address] Rajendra Hogue MD [address] [place] [phone] documented as of this encounter Visit Diagnoses Diagnosis Depressive disorder Depressive disorder, not elsewhere classified documented in this encounter Additional Health Concerns Assessment Noted Time PHQ-9 Depression Total Score: 1 12/18/19 24 9:36 AM EDT documented as of this encounter Care Teams Color Worker Relationship Specialty Start Date End Date Rajendra Hogue MD [address] [place] [phone] PCP - General Internal Medicine 03/03/14 documented as of this encounter
--- OUTSIDE RECORDS SUMMARY | 2025-01-05 11:57 | XMS_ITS | Encounter Summary ---
Author Organization [employer] Address [address] [facility] 7t [place] [address] Care Team Providers Care Home Restoration Service Supervisor Name Role Phone Rajendra Hogue MD Primary Care Provide r Reason for Visit * Reason Comments Med Refill Encounter Details Date Type Department Care Team ([facility] st Contact Info) Description 06/29/2024 Refill [facility] MED & PEDS [address] [place] [address] Rajendra Hogue MD [address] [place] [address] 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 sciatica [...] EDT Immunization [facility] MEDICINE [address] [place] [phone] 03/01/2025 10:00 AM EST Office Visit [facility] MEDICINE [address] [place] [phone] Rajendra Hogue MD [address] [place] [address] documented as of this encounter Visit Diagnoses Diagnosis 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 sciatica documented in this encounter Additional Health Concerns Assessment Noted Time PHQ-9 Depression Total Score: 1 12/18/19 24 9:36 AM EDT documented as of this encounter Care Teams Home Restoration Service Supervisor Relationship Specialty Start Date End Date Rajendra Hogue MD [address] [place] [phone] PCP - General Internal Medicine 03/03/14 documented as of this encounter
--- OUTSIDE RECORDS SUMMARY | 2025-01-05 11:57 | XMS_ITS | Clinical Summary ---
Author Organization [employer] Address [address] [place] [address] 7t [place] [address] Care Team Providers Care Principal Hardware Architect Name Role Phone Rajendra Hogue MD Primary [...] (pain). 350 g 1 03/25/20 23 Active traMADol (Ultram) 50 MG tabletIndication s: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 sciatica TAKE 1 TABLET BY MOUTH EVERY TWELVE HOURS NEEDED FOR SEVERE PAIN 56 tablet 11/28/19 24 Active Multiple Vitamins-Mineral s (CertaVite/Antio xidants) tabletIndication s: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, psychotic disturbance, mood disturbance, or anxiety, unspecified timing of dementia onset (CMS/HCC) TAKE 1 TABLET BY MOUTH EVERY MORNING 90 tablet 3 04/01/20 24 Active ipratropium-albu terol (Duo-Neb) 0.5-2.5 mg/3 mL nebulizer solution INHALE 1 AMPULE USING A NEBULIZER FOUR TIMES DAILY 360 mL 5 06/25/19 25 Active omeprazole (PriLOSEC) [address] capsule TAKE 1 CAPSULE BY MOUTH EVERY MORNING BEFORE BREAKFAST 90 capsule 1 09/10/19 25 Active loratadine (Claritin) 10 MG tabletIndication s:Seasonal allergies TAKE 1 TABLET BY MOUTH EVERY MORNING 90 tablet 1 11/05/19 25 Active Umeclidinium [place] (Incruse Ellipta) 62.5 MCG/ACT aerosol powderIndication s:Pulmonary emphysema, unspecified emphysema type ([facility]) Inhale 1 Act (62.5 mcg) Once per day. 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 TAKE 1 TABLET BY MOUTH AT BEDTIME 90 tablet 1 12/01/19 25 Active memantine (Namenda) 5 MG tabletIndication s: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, psychotic disturbance, mood disturbance, or anxiety, unspecified timing of dementia onset ([facility]) TAKE 1 TABLET BY MOUTH EVERY MORNING 90 tablet 1 12/01/19 25 Active FLUoxetine (PROzac) 40 MG capsuleIndicatio ns:Depressive disorder TAKE 1 CAPSULE BY MOUTH EVERY MORNING 90 capsule 1 12/01/19 25 Active lisinopril 30 MG tabletIndication s:Essential hypertension TAKE 1 TABLET BY MOUTH EVERY MORNING 30 tablet 3 12/18/19 25 Active traMADol (Ultram) 50 MG tabletIndication s: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 sciatica TAKE 1 TABLET BY MOUTH EVERY 12 HOURS NEEDED FOR SEVERE PAIN 56 tablet 01/01/20 25 Active amitriptyline (Elavil) 50 MG tabletIndication s:Depressive disorder TAKE 1 TABLET BY MOUTH AT BEDTIME 90 tablet 01/05/20 25 Active lisinopril 30 MG tabletIndication s:Essential hypertension TAKE 1 TABLET BY MOUTH EVERY MORNING 30 tablet 3 08/07/19 25 025 Discontinued amitriptyline (Elavil) 50 MG tabletIndication s:Depressive disorder TAKE 1 TABLET BY MOUTH AT BEDTIME 90 tablet 10/13/19 25 025 Discontinued traMADol (Ultram) 50 MG tabletIndication s: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 Personal goal of weight loss discussed BPH with elevated PSA 04/15/2023 Assessment & Plan (11/09/2024 1:09 PM EDT): Mild elevation Seen by Urology they recommended no further testing and observation given his age. Last seen 08/10/2024 Assessment & Plan (12/18/2023 9:38 AM EDT): [...] 02/19/2016 Essential hypertension 03/20/2015 Assessment & Plan (11/09/2024 1:08 PM EDT): Pt here for a f/u [...] 12/17/2022 were within normal limits. 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 Use Incruse, 1 puff daily and Combivent as needed. Chest CT 01/02/2015 Negative for Lung malignancy Plan: monitor Assessment & Plan (04/13/2024 9:26 AM EST): [...] of L4-L5 disc surgery in 1986 in [place]. Acetaminophen had been ineffective as had ibuprofen. [...] for pain control Patient las seen at [facility] 05/09/2023, back then they had recommended medial [...] of L4-L5 disc surgery in 1986 in [place]. Acetaminophen had been ineffective as had ibuprofen. [...] There is mild central stenosis. Evaluated by [facility] last note 12/11/2021 they recommended PT and [...] for pain control Patient las seen at [facility] 05/09/2023, back then they had recommended medial branch blocks at the lumbar facet to see if he would be a candidate for the radiofrequency neurotomy ablation procedure Assessment & Plan (08/12/2023 2:07 PM EDT): Pt with chronic low back pain He has a History of L4-L5 disc surgery in 1986 in [place]. Acetaminophen had been ineffective as had ibuprofen. [...] There is mild central stenosis. Evaluated by [facility] last note 12/11/2021 they recommended PT and [...] for pain control Patient las seen at [facility] 04/2023 Assessment & Plan (04/15/2023 10:48 AM EST): Pt here for a f/u regarding his acute on chronic low back pain He has a History of L4-L5 disc surgery in 1986 in [place]. Acetaminophen had been ineffective as had ibuprofen. [...] 3 months ago he fell , [facility] he has been having low back [...] of L4-L5 disc surgery in 1986 in [place]. Acetaminophen had been ineffective as had ibuprofen. [...] 3 months ago he fell , since the [facility] he has been having low back pain that radiates to his right hip and leg Plan: Plain films of his LS spine, pelvis and hip PT eval Assessment & Plan (03/28/2022 2:24 PM EST): Pt here for a f/u regarding his chronic low back pain He has a History of L4-L5 disc surgery in 1986 in [place]. Acetaminophen had been ineffective as had ibuprofen. [...] results Alzheimer's dementia 08/16/2013 Assessment & Plan (11/09/2024 1:12 PM EDT): Patient here for a follow up Doing well [facility] of 05/17/13 (scanned). Head CT 06/11/10 normal. 05/19/13 RPR NR, TSH 2.75, B12 324, folate 14. Carries a Dx of Alzheimer's type dementia. Currently on Namenda 5mg daily Assessment & Plan (12/18/2023 9:36 AM EDT): [...] of coronary artery 04/21/2006 Assessment & Plan (11/09/2024 1:11 PM EDT): Currently doing well, denies any chest pain, no sob Followed at [facility] last note 09/23/2024 Pt is stable with no medication changes. 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 Stress test 04/19/11 with normal perfusion and EF of 70%. htn and lipids well controlled. Plan: Continue to follow with Cardiology Assessment & Plan (12/18/2023 9:38 AM EDT): Currently doing well, denies any chest pain, no sob Followed at [facility] last note 07/2022 Pt is stable with no medication changes. 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 Stress test 04/19/11 with normal perfusion and EF of 70%. htn and lipids well controlled. Assessment & Plan (03/28/2022 2:24 PM EST): Currently doing well, no chest pain, no sob Followed at [facility] and stable with no medication changes. 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 Stress test 04/19/11 with normal perfusion and EF of 70%. htn and lipids well controlled. Depressive disorder 04/21/1959 Hyperlipidemia 04/21/1959 Assessment & Plan (11/09/2024 1:15 PM EDT): Patient with elevated lipids. Most recent lipid profile from: Lab Results Component Value Date TRIG 208 (H) 12/25/2023 TRIG 158 (H) 12/17/2022 CHOL 146 12/25/2023 CHOL 198 12/17/2022 LDLCHOLCAL 75 12/25/2023 LDLCHOLCAL 134 (H) 12/17/2022 HDL 30 (L) 12/25/2023 HDL 33 (L) 12/17/2022 Currently on a regimen of: Atorvastatin 40 mg op q pm. Repeat Lipid profile Plan: continue current regimen advised to try to adhere to a low cholesterol diet, counseled and educated about diet and exercise Assessment & Plan (12/18/2023 9:26 AM EDT): [...] 3 yr ago (03/07/20) Triglycerides <150 mg/dL 158 High 135 [...] less than 100 mg/dLNear Optimal/Above Optimal LDL: 110-129 mg/dLBorderline High LDL: 130-159 mg/dLHigh LDL: 160-189 [...] Encounters Date Type Department Care Team Description 01/05/2025 Orders Only [facility] External Provider, [facility] 01/03/2025 Refill [facility] [address] [place] [address] Rajendra Hogue MD Depressive disorder 12/30/2024 Refill [facility] [address] [place] [address] Candi Bacon MD 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 sciatica 12/16/2024 Refill [facility] [address] [place] [address] Rajendra Hogue MD Essential hypertension 12/02/2024 Refill [facility] [address] [place] [address] Rajendra Hogue MD 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 sciatica 11/29/2024 Refill [facility] [address] [place] [address] Rajendra Hogue MD 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; 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, psychotic disturbance, mood disturbance, or anxiety, unspecified timing of dementia onset (CMS/HCC); Depressive disorder 11/23/2024 Refill [facility] [address] [place] [address] Winsome Ayaal MD 11/09/2024 1:15 PM EDT Office Visit [facility] [address] [place] [address] Rajendra Hogue MD Essential hypertension (Primary Dx); BPH with elevated PSA; 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; 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, psychotic disturbance, mood disturbance, or anxiety, unspecified timing of dementia onset (CMS/HCC); Pulmonary emphysema, unspecified emphysema type (CMS/HCC); Mixed hyperlipidemia 11/09/2024 Travel 11/08/2024 Telephone [facility] [address] [place] [address] Rajendra Hogue MD Chart Prep 11/04/2024 Refill [facility] [address] [place] [address] Rajendra Hogue MD Pulmonary emphysema, unspecified emphysema type ([facility]/HCC) 11/03/2024 Refill [facility] [address] [place] [address] Rajendra Hogue MD Seasonal allergies; Pulmonary emphysema, unspecified emphysema type ([facility]) 10/12/2024 Refill [facility] [address] [place], [place] [phone] Rajendra Hogue MD Depressive disorder; 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 purified surface antigen ) 01/27/2013,02/24/2012 Moderna Covid-19 Vaccine 12+ 08/15/2020,07/19/19 21 Pneumococcal Conjugate PCV 13 11/07/2015 Pneumococcal Polysaccharide PPSV23 02/16/2013, TD (adult), 2 Lf tetanus tox oid, preservative free, adsorbed 09/09/2005 Tdap 12/18/2023,11/08/2011 Zoster, Recombinant 11/10/2024 Zoster, live 12/29/2014 Social History Tobacco Use [...] Sign Reading Time Taken Comments Blood Pressure 140/84 11/09/2024 1:16 PM EDT Pulse 85 11/09/2024 1:10 PM EDT Temperature 36.9 C (98.5 F) 11/09/2024 1:10 PM EDT Respiratory Rate 18 11/09/2024 1:10 PM EDT Oxygen Saturation 98% 11/09/2024 1:10 PM EDT Inhaled Oxygen Concentration - - Weight 65.1 kg (143 lb 9.6 oz) 11/09/2024 1:10 P M EDT Height 157.5 cm (5' 2 ) 11/09/2024 1:10 PM EDT Body Mass Index 26.26 11/09/2024 1:10 PM EDT Plan of Treatment Upcoming Encounters Date Type Department Care Team (Late st Contact Info) Description 01/11/2025 1:00 PM EDT Immunization [facility] [address] [place] [address] 03/01/2025 10:00 AM EST Office Visit [facility] [address] [facility] [place] [address] Rajendra Hogue MD [address] [place] [address] Health Maintenance Due Date Last Done Comments RSV Patients and Patients Aged 60 years or older (1 - 1-dose 75+ series) 2016 Depression Screening 12/17/2024 12/18/2023, 12/18/19 SDOH Screening 12/17/2024 12/18/2023 COVID-19 Vaccine (3 - 2024- season) 2024 08/15/2020, 07/18/2020 Influenza Vaccine (#1) 2024 , 03/01/2021, 01/27/2013, Additional history exists Zoster Vaccines (3 of 3) 01/05/2025 11/10/2024, 12/20 Alcohol/Substance Use Screening 04/13/2025 04/13/2024 Tobacco Screening 04/13/2025 04/13/2024 Lipid Panel 12/24/2028 [...] patient's age to complete this topic Meningococcal B Vaccine Aged Out No l onger eligible based on patient's age to complete [...] RETROPERITONEAL COMPLETE Routine 01/05/2025 10:34 AM EDT LIPID PANEL, STANDARD Routine 12/25/2023 8:04 AM EDT Mixed hyperlipidemia from Last 3 Months or Most Recently Relevant to Health Maintenance Results * US Retroperitoneal Complete (01/05/2025 10:34 AM EDT) Anatomical Region Laterality Modality Ultrasound 01/05/2025 10:3 4 AM EDT Narrative 01/05/2025 11:26 AM EDT [place] [id number] Ultrasound Report Signed Patient: Domenic Bender MR#: [id number] : 1940 Acct:[id number] Age/Sex: 84 / M ADM Date: 01/05/25 Loc: HO.US Attending Dr: Elke Cabrera MD Ordering Physician: Elke Cabrera MD Date of Service: 01/05/25 Procedure(s): US retroperitoneal comp Accession Number(s): [id number] cc: Elke Cabrera MD; Rajendra Vides MD [...] 01/05/25 1123 DD/ 1034 TD/TT: 01/05/25 1107 Sas Developer Analyst: Procedure Note Donotuseinterpreter, Image - 01/05/[address] [address] Ultrasound Report Signed Patient: Jes Bender#: [id number] : 2Acct:[id number] Age/Sex: 84 / MADM Date: 01/05/25 Loc: HO.US Attending Dr: Elke Cabrera MD Ordering Physician: Elke Cabrera MD Date of Service: 01/05/25 Procedure(s): US retroperitoneal comp Accession Number(s): [id number] cc: Elke Cabrera MD; Rajendra Vides MD [...] 01/05/25 1123 DD/ 1034 TD/TT: 01/05/25 1107 Sas Developer Analyst: [facility] External Provider IMG US PROCEDURES Edited Result - Final * (ABNORMAL) Lipid Panel, Standard (12/25/2023 8:04 AM EDT) Triglycerides 208(H) <150 mg/dL [facility] Comment:Desirable Triglyceri de: less than 150 mg/dLBorderline High Triglyceride 150-199 mg/dLHigh Triglyceride: 200-499 mg/dLVery High Triglyceride: greater than or equal to 5OO mg/dL Cholesterol 146 <200 mg/dL [facility] Comment:Desirable Cholestero l: less than 200 mg/dLBorderline High Cholesterol: 200-239 mg/dLHigh Cholesterol: greater than 239 mg/dL LDL Cholesterol Calculated 75 <100 mg/dL [facility] Comment:Desirable LDL: less than 100 mg/dLNear Optimal/Above Optimal LDL: 110- 129 mg/dLBorderline High LDL: 130-159 mg/dLHigh LDL: 160-189 mg/dLVery High LDL: greater than or equal to 190 mg/dL HDL Cholesterol 30(L) >40 mg/dL [facility] Comment:Desirable HDL: great er than 40 mg/dL Note: This HDL assay may give artificially low results in patients with liver disease. Blood Venous blood specimen / Unknown 12/25/2023 8:04 AM EDT 12/25/2023 11:23 AM EDT Rajendra Ornelas MD LAB BLOOD ORDERABLES Final Result [facility] [address] [place] [address] [phone] from Last 3 Months or Most Recently Relevant [place] [id number] [facility] OPTIONS (HMO D-SNP) [place] [id number] [address] [place] [address] Care Teams Principal Hardware Architect Relationship Specialty Start Date End Date Rajendra Hogue MD [address] [place] [phone] PCP - General Internal Medicine 03/03/14
--- OUTSIDE RECORDS SUMMARY | 2025-01-05 11:57 | XMS_ITS | Encounter Summary ---
Author Organization [employer] [facility] Address [address] [facility] 7t [place] [address] Care Team Providers Care Master Control Engineer Name Role Phone Rajendra Hogue MD Primary Care Provide r Encounter Details Date Type Department Care Team (Late st Contact Info) Description 03/08/2022 Abstract [facility] [address] [place] [phone] Rajendra Hogue MD [address] [place] [phone] Social History Tobacco Use Types Packs/Day Years [...] EDT Immunization [facility] [address] [place] [address] [phone] 03/01/2025 10:00 AM EST Office Visit [address] [phone] Rajendra Hogue MD [address] [place] [address] [phone] documented as of this encounter Procedures Procedure [...] blood specimen / Unknown us Historical Provider MD LAB BLOOD ORDERABLES Niharika l Result * Colonoscopy (02/21/2017) Colonoscopy Normal Comment:Dr Suzetet Alexis us Historical Provider HEALTH MAINTENANCE Final Result documented in this encounter Visit Diagnoses Not on filedocumented in this encounter Care Teams Master Control Engineer Relationship Specialty Start Date End Date Rajendra Hogue MD [address] [place] [phone] PCP - General Internal Medicine 03/03/14 documented as of this encounter
--- OUTSIDE RECORDS SUMMARY | 2025-01-05 11:57 | XMS_ITS | Encounter Summary ---
Author Organization [email or web address] Address [address] [facility] 7t [place] [address] Care Team Providers Care Field Service Technician Name Role Phone Rajendra Hogue MD Primary Care Provide r Reason for Visit * Reason Onset Date Comments Med Refill 12/29/2023 Encounter Details Date Type Department Care Team ([facility] st Contact Info) Description 12/29/2023 Telephone [facility] [address] [place] [address] Rajendra Hogue MD [address] [place], [place] [phone] Med Refill Social History Tobacco Use Types [...] 50 MG tablet To be sent to: [facility] [place], [place] - [address] [place] [address] documented in this encounter Plan of Treatment Upcoming Encounters Date Type Department Care Team ([facility] st Contact Info) Description 01/11/2025 1:00 PM EDT Immunization [facility] [address] [place] [phone] 03/01/2025 10:00 AM EST Office Visit [facility] [address] [place] [address] Rajendra Hogue MD [address] [place] [phone] documented as of this encounter Visit Diagnoses Not on filedocumented in this encounter Additional Health Concerns Assessment Noted Time PHQ-9 Depression Total Score: 1 12/18/19 24 9:36 AM EDT documented as of this encounter Care Teams Field Service Technician Relationship Specialty Start Date End Date Rajendra Hogue MD [address] [place] [address] PCP - General Internal Medicine 03/03/14 documented as of this encounter
--- OUTSIDE RECORDS SUMMARY | 2025-01-05 11:57 | XMS_ITS | Encounter Summary ---
Author Organization [employer] Address [address] [facility] 7t [place] [address] Care Team Providers Care Screen Making Technician Name Role Phone Rajendra Hogue MD Primary Care Provide r Reason for Visit * Reason Onset Date Comments Appointment Request 08/25/2024 Encounter Details Date Type Department Care Team ([facility] st Contact Info) Description 08/25/2024 Telephone [facility] [address] [place] [address] Rajendra Hogue MD [address] [place] [address] Appointment Request Social History Tobacco Use Types Packs/Day Years [...] encounter Miscellaneous Notes * Telephone Encounter - Carlos Bass - 08/25/2024 8:51 AM EDT Tc from daughter requesting to reschedule appointment from 08/24/2024 Appointment type : Follow Up Toi notes : HTN Provider : Rajendra Ornelas documented in this encounter Plan of Treatment Upcoming Encounters Date Type Department Care Team (Late st Contact Info) Description 01/11/2025 1:00 PM EDT Immunization [facility] [address] [place] [phone] 03/01/2025 10:00 AM EST Office Visit [facility] [address] [place] [phone] Rajendra Hogue MD [address] [place] [phone] documented as of this encounter Visit Diagnoses Not on filedocumented in this encounter Additional Health Concerns Assessment Noted Time PHQ-9 Depression Total Score: 1 12/18/19 24 9:36 AM EDT documented as of this encounter Care Teams Screen Making Technician Relationship Specialty Start Date End Date Rajendra Hogue MD [address] [place] [phone] PCP - General Internal Medicine 03/03/14 documented as of this encounter
--- OUTSIDE RECORDS SUMMARY | 2025-01-05 11:57 | XMS_ITS | Patient Health Record ---
Author Organization [facility] Address [address] [place] [address] Care Team Providers Care Support Services Coordinator Name Role Phone Brad García Jr Unavailable Reason For Referral No Information Plan Of Treatment No Information
--- OUTSIDE RECORDS SUMMARY | 2025-01-05 11:57 | XMS_ITS | Encounter Summary ---
Author Organization [email or web address] Address [address] [facility] 7t [place] [address] Care Team Providers Care Edger Machine Operator Name Role Phone Rajendra Hogue MD Primary Care Provide r Reason for Visit * Reason Comments Med Refill Encounter Details Date Type Department Care Team ([facility] st Contact Info) Description 04/01/2024 Refill [facility] [address] [place] [address] Rajendra Hogue MD [address] [facility] [place] [address] 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 sciatica [...] Info) Description 01/11/2025 1:00 PM EDT Immunization [facility] [address] [place] [phone] 03/01/2025 10:00 AM EST Office Visit [facility] [address] [place] [address] Rajendra Hogue MD [address] [place] [phone] documented as of this encounter Visit Diagnoses Diagnosis 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 sciatica documented in this encounter Additional Health Concerns Assessment Noted Time PHQ-9 Depression Total Score: 1 12/18/19 24 9:36 AM EDT documented as of this encounter Care Teams Edger Machine Operator Relationship Specialty Start Date End Date Rajendra Hogue MD [address] [place] [phone] PCP - General Internal Medicine 03/03/14 documented as of this encounter
--- OUTSIDE RECORDS SUMMARY | 2025-01-05 11:57 | XMS_ITS | Encounter Summary ---
Author Organization [email or web address] Address [address] [facility] 7t [place] [address] Care Team Providers Care Cheese Cook Name Role Phone Rajendra Hogue MD Primary Care Provide r Reason for Visit * Reason Comments Med Refill Encounter Details Date Type Department Care Team ([facility] st Contact Info) Description 08/28/2023 Refill [facility] [address] [place], [place] [phone] Rajendra Hogue MD [address] [place] [address] 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 sciatica [...] 01/11/2025 1:00 PM EDT Immunization [facility] [address] [place] [phone] 03/01/2025 10:00 AM EST Office Visit [facility] [address] [place] [phone] Rajendra Hogue MD [address] [place] [phone] documented as of this encounter Visit Diagnoses Diagnosis 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 sciatica documented in this encounter Care Teams Cheese Cook Relationship Specialty Start Date End Date Rajendra Hogue MD [address] [place] [phone] PCP - General Internal Medicine 03/03/14 documented as of this encounter
== END 2025-01-05 09:59 | disposition home or self-care (01) ==
LOC: HO.US 09:58
PROVIDERS: PCP Internal Medicine; Visit Provider Urology
DX: N40.0 Benign prostatic hyperplasia without lower urinary tract symptoms (principal)
CPT/HCPCS: 76770

== ENCOUNTER → 2025-01-05 10:01 | Outpatient (BNV) | payer OTHER, SELFPAY | PROVIDERS: PCP Internal Medicine; Visit Provider Radiology Diagnostic Radiology | DX: N28.1 Cyst of kidney, acquired (principal) | CPT/HCPCS: 76770 ==

== ENCOUNTER 2025-01-17 10:14 | Outpatient (AMB) | payer OTHER, SELFPAY ==
--- NOTE | 2025-01-17 10:22 | MHC.OFFVIS ---
Intake Visit Reasons: /US Intake Note: Patient presents to office today for a /US 01/05 [facility] Urology Meds: none Allergies to Antibiotic- No Known Allergies Blood Thinner- Aspirin & Furosemide Felt Carbonizer Required: Yes Felt Carbonizer Language: Morning Babysitter Name: Ava [id number] Information Interpreted: non-clinical & clinical Accompanied by: Self / Same As Patient Allergies No Known Allergies (No Known Allergies*) Allergy (Unknown, Verified 01/17/25 10:23) NONE Medication List - Last Reconciled 01/17/25 by Elke Cabrera MD amitriptyline 50 mg PO BEDTIME aspirin 81 mg PO BEDTIME atorvastatin mg PO finasteride (Proscar) 5 mg PO DAILY fluoxetine mg PO fluticasone propionate 50 mcg/actuation 1 spray intranasal DAILY furosemide 20 mg PO DAILY ipratropium-albuterol 0.5 mg-3 mg(2.5 mg base)/3 mL mL inhalation lisinopril 5 mg PO BEDTIME loratadine 10 mg PO BEDTIME memantine 5 mg PO BEDTIME metoprolol succinate ER 100 mg PO DAILY ibouqtemtlim-perq-tifyn acid 18-400 mg-mcg (Certavite-Antioxidant) 0 tabs PO nitroglycerin 0.4 mg sublingual omeprazole 20 mg PO QAM umeclidinium 62.5 mcg/actuation 1 inh inhalation DAILY HPI Comments Details: 01/17/25--Domenic is here for follow-up BPH I will review renal us renal and kidney ultrasound dated 01/05 25--bilateral renal cysts postvoid residual 174 mL estimated prostate volume 45.7 mL History of Present Illness The patient is an 84-year-old male presenting for follow-up of Benign Prostatic Hyperplasia (BPH). The patient has a history of BPH, with a recent renal and kidney ultrasound performed on 01/05/25, revealing bilateral renal cysts and an estimated prostate volume of 45.7 mL. The ultrasound also showed a post-void residual of 174 mL, indicating incomplete bladder emptying. The kidneys were assessed and found to be free of masses or stones, bilateral renal cysts. The prostate is mildly enlarged, which can affect urine flow, and a medication has been recommended to help shrink the prostate. Blood work is planned, and a follow-up appointment is scheduled in six months to assess the effectiveness of the treatment. Monitor PVR. Results - Renal and kidney ultrasound (01/05/25): Bilateral renal cysts, post-void residual 174 mL, estimated prostate volume 45.7 mL - Kidneys: No masses or stones, presence of simple cysts Plan 1. Benign Prostatic Hyperplasia (Bph) - Initiate medication to shrink the prostate and improve urine flow. - Conduct blood work prior to the next follow-up. - Schedule follow-up in six months to evaluate treatment efficacy. Monitor PVR 2. Bilateral Renal Cysts - imaging c/w Simple cysts 08/10/24-- - Bladder Scan: Post-void residual volume was 61 mL Discussion Notes I discussed with the patient the ongoing management of his Benign Prostatic Hyperplasia (BPH). There was a review of his current urinary health status, which remains stable, and he reported no new urinary complaints. We discussed the benefits of adequate hydration, specifically increasing water intake, and minimizing caffeine consumption to maintain optimal urinary tract function. Additionally, we talked about performing a diagnostic ultrasound of the kidneys and bladder to ensure no progression of his underlying condition and to continue comprehensive monitoring of his health status. 02/20/2023?Domenic is an 82-year-old male who presents today to the office for a evaluation. He is present today for an evaluation of elevated PSA. The patient has seen Dr. Vides on 12/20/2022. He was referred to the urology office during that time. He is a Vietnamese speaking male. Certified interpreter translator was present during the visit. The patient has a past medical history significant for coronary artery disease and hypertension. He is a status post cardiac stent. He denies any family history of cancer. He is currently sexual active but does not use Viagra due to the cardiac condition. Patient states that he urinates frequently during the day time and denies getting up at night time to urinate. In review of his medications, he does take Lasix 20 mg during the day which may contribute to the day time urinary frequency. I reviewed the PSA results from 12/17/2022 revealed 4.20 ng/mL. In discussion with the patient given his age his PSA was wnl. Examination: Prostate is smooth, moderately enlarged. 02/20/2023: Evaluation today?Bladder scan PVR: 134 mL. [facility] Medical History Carpal tunnel syndrome of right wrist Trigger finger of right thumb Osteoarthritis of metacarpophalangeal (MCP) joint Dyspepsia GERD (gastroesophageal reflux disease) Weight loss Renal cyst, acquired Impaired fasting glucose Anxiety Hyperlipidemia Coronary artery disease HTN (hypertension) Lateral epicondylitis Surgical History History of surgery Social History Alcohol intake: current Patient Tobacco Use Status: Current everyday Tobacco user Current occupational status: retired Results Reviewed Results Reviewed: Date of Service: 01/05/25 EXAMINATION: US RETROPERITONEUM HISTORY: N40.0 - Benign prostatic hyperplasia without lower urinary tract symptoms TECHNIQUE: Real-time grayscale ultrasound imaging of the kidneys was performed and images were reviewed. COMPARISON: Comparison is made with the prior examination 08/12/2017. FINDINGS: Right kidney: The right kidney measures 9.6 x 6.1 x 4.1 cm. Renal parenchymal echotexture and thickness are normal. Multiple cysts are noted including a 3.0 x 2.5 x 2.7 cm cyst in the interpolar region medially, a 2.0 x 1.4 x 1.2 cm cyst in the interpolar region laterally, and a 5.1 x 3.7 x 4.4 cm cyst at the lower pole. There is no hydronephrosis or renal calculi. Left Kidney: The left kidney measures 12.9 x 6.1 x 5.4 cm. Renal parenchymal echotexture and thickness are normal. Multiple cysts are noted including a 13.8 x 9.9 x 11.2 cm cyst in the interpolar region and a 1.9 x 1.3 x 2.0 cm cyst at the lower pole. There is no hydronephrosis or renal calculi. The urinary bladder is unremarkable. Bilateral ureteral jets are identified. Before voiding, the urinary bladder measured 11.2 x 8.0 x 9.0 cm, for an estimated volume of 422 mL. After voiding, the urinary bladder measured 8.5 x 5.5 x 7.1 cm, for an estimated volume of 174 mL. The prostate measures 4.6 x 4.2 x 4.7 cm, for an estimated volume of 45.7 mL. IMPRESSION: 1. Bilateral renal cysts as described. 2. Post void bladder residual of 174 mL. 3. Prostate volume of 45.7 mL. Assessment & Plan Assessment & Plan (1) BPH (benign prostatic hyperplasia): Code(s): N40.0 - Benign prostatic hyperplasia without lower urinary tract symptoms Category: Medical (2) Screening PSA (prostate specific antigen): Code(s): Z12.5 - Encounter for screening for malignant neoplasm of prostate Category: Medical Plan Plan 1. Benign Prostatic Hyperplasia (Bph) - Initiate medication to shrink the prostate and improve urine flow. - Conduct blood work prior to the next follow-up. - Schedule follow-up in six months to evaluate treatment efficacy. Monitor PVR 2. Bilateral Renal Cysts - imaging c/w Simple cysts Orders: Orders PSA,Total (Free>4and<10) 5 Months N40.0 - Benign prostatic hyperplasia without lower urinary tract symptoms Medications: New finasteride (Proscar) 5 mg PO DAILY 90 tabs 3RF Patient Instructions: The patient had an opportunity to ask questions regarding treatment plan. The patient expressed understanding and agreement with the above treatment plan. The patient is aware they should contact our office by phone for worsening of their current condition or the appearance of new symptoms. Compliance is encouraged with any medications and followup testing that is ordered. It is a privilege to be allowed the opportunity to participate in the urologic care of your patient. If you have any questions or concerns regarding treatment for the above conditions please do not hesitate to contact me. The office telephone contact is [phone]. This note is constructed in part using voice recognition software. While every effort has been made to ensure accuracy assembler metal building errors may have been included. Yours sincerely, Elke Cabrera MD Scribe Plan - Not visible on output: Patient was informed and verbally consented to the use of an ambient scribe for clinic note documentation during this visit. Coding Level of Care Code Est Pt Level 4 (93610) Diagnoses BPH (benign prostatic hyperplasia) N40.0 Screening PSA (prostate specific antigen) Z12.5
--- OUTSIDE RECORDS SUMMARY | 2025-01-17 11:22 | XMS_ITS | Encounter Summary ---
Author Organization [employer] [facility] Address [address] [place] [address] Care Team Providers Care Senior Budget Analyst Name Role Phone Rajendra Hogue MD Primary Care Provide r Encounter Details Date Type Department Care Team (Late st Contact Info) Description 03/08/2022 Abstract [facility] MEDICINE [address] [place] [address] [phone] Rajendra Hogue MD [address] [place] [address] [phone] Social History Tobacco Use Types Packs/Day Years [...] Care Team (Late st Contact Info) Description 03/01/2025 10:00 AM EST Office Visit [facility] MEDICINE [address] [place] [address] [phone] Rajendra Hogue MD [address] [place], [place] [phone] documented as of this encounter Procedures Procedure Name Priority Date/Time Associated Diagnosis Comments LIPID PANEL, STANDARD Routine 10/29/2021 [facility] COLONOSCOPY Routine 02/21/2017 documented in this encounter Results * Lipid Panel, Standard (10/29/2021) LDL HDL Ratio 3.5 Triglycerides 135 40 - 160 mg/dL Cholesterol 154 0 - 200 mg/dL HDL Cholesterol 44 35 - 70 mg/dL LDL Cholesterol 87 mg/dL Blood Venous blood specimen / Unknown us Historical Provider LAB BLOOD ORDERABLES Niharika l Result * Colonoscopy (02/21/2017) Colonoscopy Normal Comment:Dr Suzette Alexis us Historical Provider HEALTH MAINTENANCE Final Result documented in this encounter Visit Diagnoses Not on filedocumented in this encounter Care Teams Senior Budget Analyst Relationship Specialty Start Date End Date Rajendra Hogue MD [address] [place] [phone] PCP - General Internal Medicine 03/03/14 documented as of this encounter
--- OUTSIDE RECORDS SUMMARY | 2025-01-17 11:22 | XMS_ITS | Encounter Summary ---
Author Organization [employer] [facility] Address [address] [place] [address] Care Team Providers Care Organic Preparation Analyst Name Role Phone Rajendra Hogue MD Primary Care Provide r Reason for Visit * Reason Comments Med Refill Encounter Details Date Type Department Care Team (Late st Contact Info) Description 05/01/[address] [facility] MEDICINE [address] [place], [place] [phone] Rajendra Hogue MD [address] [place], [place] [phone] 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 sciatica [...] Description 03/01/2025 10:00 AM EST Office Visit [facility] MEDICINE [address] [place], [place] [phone] Rajendra Hogue MD [address] [place], [place] [phone] documented as of this encounter Visit Diagnoses Diagnosis 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 sciatica documented in this encounter Care Teams Organic Preparation Analyst Relationship Specialty Start Date End Date Rajendra Hogue MD [address] [place] [address] PCP - General Internal Medicine 03/03/14 documented as of this encounter
--- OUTSIDE RECORDS SUMMARY | 2025-01-17 11:23 | XMS_ITS | Encounter Summary ---
Author Organization [employer] Address [address] [place] [address] Care Team Providers Care Process Designer Name Role Phone Rajendra Hogue MD Primary Care Provide r Reason for Visit * Reason Onset Date Comments Med Refill 10/30/2023 Encounter Details Date Type Department Care Team ([facility] st Contact Info) Description 10/30/2023 Telephone [facility] MEDICINE [address] [place] [address] Rajendra Hogue MD [address] [place], [place] [phone] Med Refill Social History Tobacco Use Types [...] Miscellaneous Notes * Telephone Encounter - Rey Bandar - 10/30/2023 10:34 AM EDT TC from pt requesting medication refill. Medications needing refill: traMADol (Ultram) 50 MG tablet To be sent to: [facility] documented in this encounter Plan of Treatment Upcoming Encounters Date Type Department Care Team (Late st Contact Info) Description 03/01/2025 10:00 AM EST Office Visit [facility] MEDICINE [address] [place] [address] Rajendra Hogue MD [address] [place] [address] documented as of this encounter Visit Diagnoses Not on filedocumented in this encounter Care Teams Process Designer Relationship Specialty Start Date End Date Rajendra Hogue MD [address] [place] [phone] PCP - General Internal Medicine 03/03/14 documented as of this encounter
--- OUTSIDE RECORDS SUMMARY | 2025-01-17 11:23 | XMS_ITS | Encounter Summary ---
Author Organization [employer] Address [address] [place] [address] Care Team Providers Care Filteration Operator Name Role Phone Rajendra Hogue MD Primary Care Provide r Reason for Visit * Reason Comments Med Refill Encounter Details Date Type Department Care Team ([facility] st Contact Info) Description 03/31/2023 Refill [facility] [address] [place] [address] Earnestine Juan FNP [address] [place] [phone] Social History Tobacco Use Types Packs/Day Years [...] Description 03/01/2025 10:00 AM EST Office Visit [facility] MEDICINE [address] [place] [address] Rajendra Hogue MD [address] [place] [phone] documented as of this encounter Visit Diagnoses Not on filedocumented in this encounter Care Teams Filteration Operator Relationship Specialty Start Date End Date Rajendra Hogue MD [address] [place] [phone] PCP - General Internal Medicine 03/03/14 documented as of this encounter
--- OUTSIDE RECORDS SUMMARY | 2025-01-17 11:23 | XMS_ITS | Patient Health Record ---
Author Organization [employer] [facility] Address [address] [place] [address] Care Team Providers Care Inspector Structural Bonding Name Role Phone Brad García Jr Unavailable Reason For Referral No Information Plan Of Treatment No Information
--- OUTSIDE RECORDS SUMMARY | 2025-01-17 11:23 | XMS_ITS | Encounter Summary ---
Author Organization [employer] Address [address] [place] [address] Care Team Providers Care Tractor Trailer Driver Name Role Phone Rajendra Hogue MD Primary Care Provide r Reason for Visit * Reason Comments Med Refill Encounter Details Date Type Department Care Team ([facility] st Contact Info) Description 08/28/2023 Refill [facility] [address] [place], [place] [phone] Rajendra Hogue MD [address] [place] [address] 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 sciatica [...] Description 03/01/2025 10:00 AM EST Office Visit [facility] [address] [place], [place] [phone] Rajendra Hogue MD [address] [place] [address] documented as of this encounter Visit Diagnoses Diagnosis 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 sciatica documented in this encounter Care Teams Tractor Trailer Driver Relationship Specialty Start Date End Date Rajendra Hogue MD [address] [place] [address] PCP - General Internal Medicine 03/03/14 documented as of this encounter
--- OUTSIDE RECORDS SUMMARY | 2025-01-17 11:23 | XMS_ITS | Encounter Summary ---
Author Organization [employer] Address [address] [facility] [address] [place] [address] Care Team Providers Care Draw Tender Name Role Phone Rajendra Hogue MD Primary Care Provide r Reason for Visit * Reason Comments Med Refill Encounter Details Date Type Department Care Team ([facility] st Contact Info) Description 08/27/2023 Refill [facility] [address] [place], [place] [phone] Rajendra Hogue MD [address] [place] [address] 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 sciatica [...] Description 03/01/2025 10:00 AM EST Office Visit [facility] MEDICINE [address] [place], [place] [phone] Rajendra Hogue MD [address] [place] [phone] documented as of this encounter Visit Diagnoses Diagnosis 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 sciatica documented in this encounter Care Teams Draw Tender Relationship Specialty Start Date End Date Rajendra Hogue MD [address] [place] [address] PCP - General Internal Medicine 03/03/14 documented as of this encounter
--- OUTSIDE RECORDS SUMMARY | 2025-01-17 11:23 | XMS_ITS | Clinical Summary ---
Author Organization [employer] Address [address] [facility] 7t [place] [address] Care Team Providers Care Economic Manager Name Role Phone Rajendra Hogue MD [...] anxiety, unspecified timing of dementia onset (CMS/HCC) (HCC) TAKE 1 TABLET BY MOUTH EVERY MORNING [...] 90 tablet 1 11/05/19 25 Active Umeclidinium [place] (Incruse Ellipta) 62.5 MCG/ACT aerosol powderIndication s:Pulmonary emphysema, unspecified emphysema type Inhale 1 Act (62.5 mcg) Once per day. 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 Acetaminophen had been ineffective as had ibuprofen. [...] There is mild central stenosis. Evaluated by [facility] last note 12/11/2021 they recommended PT and [...] for pain control Patient las seen at [facility] 05/09/2023, back then they had recommended medial [...] of L4-L5 disc surgery in 1986 in [place]. Acetaminophen had been ineffective as had ibuprofen. [...] There is mild central stenosis. Evaluated by [facility] last note 12/11/2021 they recommended PT and [...] for pain control Patient las seen at [facility] 05/09/2023, back then they had recommended medial branch blocks at the lumbar facet to see if he would be a candidate for the radiofrequency neurotomy ablation procedure Assessment & Plan (08/12/2023 2:07 PM EDT): Pt with chronic low back pain He has a History of L4-L5 disc surgery in 1986 in [place]. Acetaminophen had been ineffective as had ibuprofen. [...] There is mild central stenosis. Evaluated by [facility] last note 12/11/2021 they recommended PT and [...] 12 hrs PRN for pain control Patient carrillo seen at [facility] 04/2023 Assessment & Plan (04/15/2023 10:48 AM EST): Pt here for a f/u regarding his acute on chronic low back pain He has a History of L4-L5 disc surgery in 1986 in [place]. Acetaminophen had been ineffective as had ibuprofen. [...] 3 months ago he fell , since [facility] he has been having low back [...] of L4-L5 disc surgery in 1986 in [place]. Acetaminophen had been ineffective as had ibuprofen. [...] 3 months ago he fell , since [facility] he has been having low back pain that radiates to his right hip and leg Plan: Plain films of his LS spine, pelvis and hip PT eval Assessment & Plan (03/28/2022 2:24 PM EST): Pt here for a f/u regarding his chronic low back pain He has a History of L4-L5 disc surgery in 1986 in [place]. Acetaminophen had been ineffective as had ibuprofen. [...] injections pt had good results Alzheimer's dementia ([facility]) 08/16/2013 Assessment & Plan (11/09/2024 1:12 PM [...] any chest pain, no sob Followed at [facility] Cardiology last note 09/23/2024 Pt is stable with no medication changes. 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 Stress test 04/19/11 with normal perfusion and EF of 70%. htn and lipids well controlled. Plan: Continue to follow with Cardiology Assessment & Plan (12/18/2023 9:38 AM EDT): Currently doing well, denies any chest pain, no sob Followed at [facility] Cardiology last note 07/2022 Pt is stable with no medication changes. 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 Stress test 04/19/11 with normal perfusion and EF of 70%. htn and lipids well controlled. Assessment & Plan (03/28/2022 2:24 PM EST): Currently doing well, no chest pain, no sob Followed at [facility] and stable with no medication changes. Of [...] Department Care Team Description 01/05/2025 Orders Only [facility] External Provider, [facility] 01/03/2025 Refill [facility] [address] [place] [address] Rajendra Hogue MD Depressive disorder 12/30/2024 Refill [facility] [address] [place] [address] Candi Bacon MD 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 sciatica 12/16/2024 Refill [facility] [address] [place] [address] Rajendra Hogue MD Essential hypertension 12/02/2024 Refill [facility] [address] [place], [place] [phone] Rajendra Hogue MD 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 sciatica 11/29/2024 Refill [facility] [address] [place] [address] Rajendra Hogue MD 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; 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, psychotic disturbance, mood disturbance, or anxiety, unspecified timing of dementia onset (CMS/HCC); Depressive disorder 11/23/2024 Refill [facility] [address] [place] [address] Winsome Ayala MD 11/09/2024 1:15 PM EDT Office Visit [facility] [address] [place] [address] Rajendra Hogue MD Essential hypertension (Primary Dx); BPH with elevated PSA; 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; 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, psychotic disturbance, mood disturbance, or anxiety, unspecified timing of dementia onset (CMS/HCC); Pulmonary emphysema, unspecified emphysema type (CMS/HCC); Mixed hyperlipidemia 11/09/2024 Travel 11/08/2024 Telephone [facility] [address] [place] [address] Rajendra Hogue MD Chart Prep 11/04/2024 Refill [facility] [address] [place] [address] Rajendra Hogue MD Pulmonary emphysema, unspecified emphysema type ([facility]/HCC) 11/03/2024 Refill [facility] [address] [place], [place] [phone] Rajendra Hogue MD Seasonal allergies; Pulmonary emphysema, unspecified emphysema type ([facility]/HCC) from Last 3 Months Immunizations Immunization Administration [...] Description 03/01/2025 10:00 AM EST Office Visit [facility] [address] [place] [address] Rajendra Hogue MD [address] [place] [address] Health Maintenance Due Date Last Done Comments [...] AM EDT Narrative 01/05/2025 11:26 AM EDT [place] [address] Ultrasound Report Signed Patient: Domenic Bender MR#: [id number] : 1940 Acct:[id number] Age/Sex: 84 / M ADM Date: 01/05/25 Loc: HO.US Attending Dr: Elke Cabrera MD Ordering Physician: Elke Cabrera MD Date of Service: 01/05/25 Procedure(s): US retroperitoneal comp Accession Number(s): [id number] cc: Elke Cabrera MD; Rajendra Vides MD [...] 01/05/25 1123 DD/ 1034 TD/TT: 01/05/25 1107 Bridge Operator Slip: Procedure Note Donotuseinterpreter, Image - 01/05/2025 [place] [address] Ultrasound Report Signed Patient: Jes Bender#: [id number] : 2Acct:[id number] Age/Sex: 84 / MADM Date: 01/05/25 Loc: HO.US Attending Dr: Elke Cabrera MD Ordering Physician: Elke Cabrera MD Date of Service: 01/05/25 Procedure(s): US retroperitoneal comp Accession Number(s): [id number] cc: Elke Cabrera MD; Rajendra Vides MD [...] 01/05/25 1123 DD/ 1034 TD/TT: 01/05/25 1107 Bridge Operator Slip: us [facility] External Provider IMG US PROCEDURES Edited Result - Final * (ABNORMAL) Lipid Panel, Standard (12/25/2023 8:04 AM EDT) Triglycerides 208(H) <150 mg/dL [facility] Comment:Desirable Triglyceri de: less than 150 mg/dLBorderline High Triglyceride 150-199 mg/dLHigh Triglyceride: 200-499 mg/dLVery High Triglyceride: greater than or equal to 5OO mg/dL Cholesterol 146 <200 mg/dL [facility] Comment:Desirable Cholestero l: less than 200 mg/dLBorderline High Cholesterol: 200-239 mg/dLHigh Cholesterol: greater than 239 mg/dL LDL Cholesterol Calculated 75 <100 mg/dL [facility] Comment:Desirable LDL: less than 100 mg/dLNear Optimal/Above Optimal LDL: 110- 129 mg/dLBorderline High LDL: 130-159 mg/dLHigh LDL: 160-189 mg/dLVery High LDL: greater than or equal to 190 mg/dL HDL Cholesterol 30(L) >40 mg/dL [facility] Comment:Desirable HDL: great er than 40 mg/dL Note: This HDL assay may give artificially low results in patients with liver disease. Blood Venous blood specimen / Unknown 12/25/2023 8:04 AM EDT 12/25/2023 11:23 AM EDT us Rajendra Ornelas MD LAB BLOOD ORDERABLES Final Result [facility] [address] [place], [place] [phone] from Last 3 Months or Most Recently Relevant to Health Maintenance Insurance [facility] ASSISTED OPTIONS (HMO D-SNP) [place] [id number] [place] [phone] [place] [address] [phone] [place] [phone] Care Teams Economic Manager Relationship Specialty Start Date End Date Rajendra Hogue MD [address] [place] [phone] PCP - General Internal Medicine 03/03/14
--- OUTSIDE RECORDS SUMMARY | 2025-01-17 11:23 | XMS_ITS | Encounter Summary ---
Author Organization [employer] Address [address] [facility] 7t [place] [address] Care Team Providers Care Volcanology Professor Name Role Phone Rajendra Hogue MD Primary Care Provide r Reason for Visit * Reason Comments Med Refill Encounter Details Date Type Department Care Team ([facility] st Contact Info) Description 08/28/2023 Refill [facility] [address] [place], [place] [phone] Rajendra Hogue MD [address] [place] [address] 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 sciatica [...] Description 03/01/2025 10:00 AM EST Office Visit [facility] [address] [place], [place] [phone] Rajendra Hogue MD [address] [place] [address] documented as of this encounter Visit Diagnoses Diagnosis 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 sciatica documented in this encounter Care Teams Volcanology Professor Relationship Specialty Start Date End Date Rajendra Hogue MD [address] [place] [address] PCP - General Internal Medicine 03/03/14 documented as of this encounter
--- OUTSIDE RECORDS SUMMARY | 2025-01-17 11:23 | XMS_ITS | Encounter Summary ---
Author Organization [employer] Address [address] [facility] 7t [place] [address] Care Team Providers Care Event Planner Name Role Phone Rajendra Hogue MD Primary Care Provide r Reason for Visit * Reason Onset Date Comments Med Refill 12/29/2023 Encounter Details Date Type Department Care Team ([facility] st Contact Info) Description 12/29/2023 Telephone [facility] [address] [place] [address] Rajendra Hogue MD [address] [place], [place] [phone] Med Refill Social History Tobacco Use Types [...] 50 MG tablet To be sent to: [facility] [place], [place] - [address] [place] [address] documented in this encounter Plan of Treatment Upcoming Encounters Date Type Department Care Team ([facility] st Contact Info) Description 03/01/2025 10:00 AM EST Office Visit [facility] [address] [place] [address] Rajendra Hogue MD [address] [place] [address] documented as of this encounter Visit Diagnoses Not on filedocumented in this encounter Additional Health Concerns Assessment Noted Time PHQ-9 Depression Total Score: 1 12/18/19 24 9:36 AM EDT documented as of this encounter Care Teams Event Planner Relationship Specialty Start Date End Date Rajendra Hogue MD [address] [place] [address] PCP - General Internal Medicine 03/03/14 documented as of this encounter
--- OUTSIDE RECORDS SUMMARY | 2025-01-17 11:23 | XMS_ITS | Encounter Summary ---
Author Organization [employer] Address [address] [facility] [address] [place] [address] Care Team Providers Care Industrial Maintenance [place] Name Role Phone Rajendra Hogue MD Primary Care Provide r Reason for Visit * Reason Comments Med Refill Encounter Details Date Type Department Care Team ([facility] st Contact Info) Description 04/01/2024 Refill [facility] [address] [place] [address] Rajendra Hogue MD [address] [facility] [place] [address] 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 sciatica [...] Description 03/01/2025 10:00 AM EST Office Visit [facility] [address] [place] [address] Rajendra Hogue MD [address] [place] [address] documented as of this encounter Visit Diagnoses Diagnosis 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 sciatica documented in this encounter Additional Health Concerns Assessment Noted Time PHQ-9 Depression Total Score: 1 12/18/19 24 9:36 AM EDT documented as of this encounter Care Teams Industrial Maintenance [place] Relationship Specialty Start Date End Date Rajendra Hogue MD [address] [place] [phone] PCP - General Internal Medicine 03/03/14 documented as of this encounter
--- OUTSIDE RECORDS SUMMARY | 2025-01-17 11:23 | XMS_ITS | Encounter Summary ---
Author Organization [employer] Address [address] [facility] 7t [place] [address] Care Team Providers Care Director Of Database Marketing Name Role Phone Rajendra Hogue MD Primary Care Provide r Reason for Visit * Reason Onset Date Comments Appointment Request 08/25/2024 Encounter Details Date Type Department Care Team ([facility] st Contact Info) Description 08/25/2024 Telephone [facility] [address] [place] [address] Rajendra Hogue MD [address] [place] [address] Appointment Request Social History Tobacco Use Types [...] 03/01/2025 10:00 AM EST Office Visit [facility] [address] [place] [phone] Rajendra Hogue MD [address] [place] [address] documented as of this encounter Visit Diagnoses Not on filedocumented in this encounter Additional Health Concerns Assessment Noted Time PHQ-9 Depression Total Score: 1 12/18/19 24 9:36 AM EDT documented as of this encounter Care Teams Director Of Database Marketing Relationship Specialty Start Date End Date Rajendra Hogue MD [address] [place] [id number] PCP - General Internal Medicine 03/03/14 documented as of this encounter
--- OUTSIDE RECORDS SUMMARY | 2025-01-17 11:23 | XMS_ITS | Encounter Summary ---
Author Organization [employer] Address [address] [facility] [address] [place] [address] Care Team Providers Care Personal Financial Representative Name Role Phone Rajendra Hogue MD Primary Care Provide r Reason for Visit * Reason Comments Med Refill Encounter Details Date Type Department Care Team ([facility] st Contact Info) Description 08/28/2023 Refill [facility] [address] [place], [place] [phone] Rajendra Hogue MD [address] [place] [address] 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 sciatica [...] Description 03/01/2025 10:00 AM EST Office Visit [facility] [address] [place], [place] [phone] Rajendra Hogue MD [address] [place] [address] documented as of this encounter Visit Diagnoses Diagnosis 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 sciatica documented in this encounter Care Teams Personal Financial Representative Relationship Specialty Start Date End Date Rajendra Hogue MD [address] [place] [address] PCP - General Internal Medicine 03/03/14 documented as of this encounter
--- OUTSIDE RECORDS SUMMARY | 2025-01-17 11:23 | XMS_ITS | Encounter Summary ---
Author Organization [employer] Address [address] [facility] 7t [place] [address] Care Team Providers Care Travel Director Name Role Phone Rajendra Hogue MD Primary Care Provide r Reason for Visit * Reason Comments Med Refill Encounter Details Date Type Department Care Team ([facility] st Contact Info) Description 06/29/2024 Refill [facility] [address] [place] [address] Rajendra Hogue MD [address] [facility] [place] [address] 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 sciatica [...] Description 03/01/2025 10:00 AM EST Office Visit [facility] [address] [place] [address] Rajendra Hogue MD [address] [place] [address] documented as of this encounter Visit Diagnoses Diagnosis 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 sciatica documented in this encounter Additional Health Concerns Assessment Noted Time PHQ-9 Depression Total Score: 1 12/18/19 24 9:36 AM EDT documented as of this encounter Care Teams Travel Director Relationship Specialty Start Date End Date Rajendra Hogue MD [address] [place] [phone] PCP - General Internal Medicine 03/03/14 documented as of this encounter
== END 2025-01-17 10:49 | disposition home or self-care (01) ==
LOC: HO.HUSH 10:15
PROVIDERS: PCP Internal Medicine; Visit Provider Urology
DX: N40.0 Benign prostatic hyperplasia without lower urinary tract symptoms (principal); Z12.5 Encounter for screening for malignant neoplasm of prostate; N52.01 Erectile dysfunction due to arterial insufficiency
CPT/HCPCS: 99214

== ENCOUNTER → 2025-01-17 10:14 | Outpatient (BNVA) | payer OTHER, SELFPAY | PROVIDERS: PCP Internal Medicine; Visit Provider Urology | DX: N40.0 Benign prostatic hyperplasia without lower urinary tract symptoms (principal) | CPT/HCPCS: 81003; 99212 ==